=== PATIENT | male | born 1955 | race Caucasian/White ===

== ENCOUNTER 2017-05-15 20:17 | Inpatient (IN) | payer MEDICAID, OTHER ==
[~2017-05-15] VITALS: Ht 175.3 cm; Wt 107.0 kg
[~2017-05-15 20:17] MED LIST: ADVICAP; ALLO100 PO; FERR324T4 PO; HYDR50TA5 PO; HYZA100T4 PO; LOSA25; PROP20 PO; PROT40TA PO; blood pressure med
[2017-05-15 20:29] VITALS: BP 127/85; PULSE 70; RESP 20; TEMP 97.8
[2017-05-15 20:50] VITALS: BP 140/70; PULSE 70; RESP 16; O2SAT 98
[2017-05-15] MEDS ORDERED: ALLO100T PO (20:54)
[2017-05-15] MEDS ORDERED: LOSA100T3 PO (20:54)
[2017-05-15] MEDS ORDERED: PROT40TA PO (20:54)
[2017-05-15] MEDS ORDERED: PROP20TA3 PO (20:54)
[2017-05-15] MEDS ORDERED: FERR325T18 PO (20:54)
[2017-05-15] MEDS ORDERED: OCTREOTIDE INJ 500 MCG in SODIUM CHLORID 0.9% 500 ML INJ 500 ML IV SCH (21:05)
[2017-05-15] MEDS ORDERED: PANTOPRAZOLE INJ 80 MG in SODIUM CHLORIDE 0.9% INJ 100 ML IV SCH ×5 (21:05→21:30)
[2017-05-15] MEDS ORDERED: PANTOPRAZOLE INJ 80 MG in SODIUM CHLORIDE 0.9% INJ 35 ML IV ONE (21:05)
--- NOTE | 2017-05-15 21:13 | PD ---
HPI Chief Complaint: GI Complaint Time Seen by Provider: 20:47 Travel History International Travel<30 days: No Contact w/Intl Traveler<30days: No Traveled to known affect area: No History of Present Illness HPI 62yo M with PMH of esophageal varices here with c/o hematemesis that started half an hour ago. Said he vomited bright red blood with blood clots in it. Also with epigastric and left lower abdominal pain. Denies any fever, chest pain, sob, dysuria, hematuria, black stool or blood in stool. Pt was admitted 03/2013 for upper GI bleed and anemia and had endoscopy that showed esophageal varices, gastritis and duodenitis. Had transfusion of 5 units of PRBC. Pt said he has not had any problems since then so has not follow with any GI physician. Drinks alcohol occasionally. Pt said he vomited about 1000cc of bright red blood with clots that started 30 minutes prior to arrival. PFSH Past Medical History Arthritis: Yes Cancer: No Diminished Hearing: No Endocrine: No GERD: Yes Gout: Yes Genitourinary: Yes (Jiang's Esophagus) Hypertension: Yes Immune Disorder: No Musculoskeletal: Yes Neurologic: No Psychiatric: No Reproductive: No Respiratory: No Tetanus Vaccination: > 5 Years Influenza Vaccination: No Past Surgical History Oral Surgery: Yes (TONSILECTOMY) Tonsillectomy: Yes Other Surgery: Yes Social History Alcohol Use: Yes (BEERS WEEKLY. "a couple beers a week" ) Tobacco Use: No Substance Use: No Allergies-Medications (Allergen,Severity, Reaction): Coded Allergies: No Known Allergies (Verified Allergy, Unknown, 05/15/17) Reported Meds & Prescriptions Reported Meds & Active Scripts Active Reported Propranolol (Propranolol HCl) 20 Mg Tab 20 Mg PO Q12HR Protonix (Pantoprazole Sodium) 40 Mg Tab 40 Mg PO DAILY Losartan-Hydrochlorothiazide 100-12.5 Mg Tab 1 Tab PO DAILY Ferrous Sulfate 325 Mg (65 Mg Iron) Tablet 325 Mg PO BIDPC Allopurinol 100 Mg Tab 100 Mg PO DAILY Review of Systems Except as stated in HPI: all other systems reviewed are Neg Physical Exam Narrative GENERAL: 62yo M in mild distress. SKIN: Focused skin assessment warm/dry. HEAD: Atraumatic. Normocephalic. EYES: Pupils equal and round. No scleral icterus. No injection or drainage. ENT: No nasal bleeding or discharge. Mucous membranes pink and moist. NECK: Trachea midline. No JVD. CARDIOVASCULAR: Regular rate and rhythm. No murmur appreciated. RESPIRATORY: No accessory muscle use. Clear to auscultation. Breath sounds equal bilaterally. GASTROINTESTINAL: Abdomen soft, +TTP epigastric and LLQ. No rebound tenderness or guarding. MUSCULOSKELETAL: No obvious deformities. No clubbing. No cyanosis. No edema. NEUROLOGICAL: Awake and alert. No obvious cranial nerve deficits. Motor grossly within normal limits. Normal speech. PSYCHIATRIC: Appropriate mood and affect; insight and judgment normal. Data Data Last Documented VS Vital Signs Date Time Temp Pulse Resp B/P (MAP) Pulse Ox O2 Delivery O2 Flow Rate FiO2 05/15/17 22:10 98.7 75 18 125/75 (92) 98 Room Air Orders Orders Basic Metabolic Panel (Bmp) (05/15/17 21:05) Complete Blood Count With Diff (05/15/17 21:05) Prothrombin Time / Inr (Pt) (05/15/17 21:05) Act Partial Throm Time (Ptt) (05/15/17 21:05) Type And Screen (05/15/17 21:05) Ondansetron Inj (Zofran Inj) (05/15/17 21:15) Sodium Chlorid 0.9%... W/Octreotide Inj (05/15/17 21:05) Sodium Chloride 0.9... W/Pantoprazole In (05/15/17 21:05) Ct Abd/Pel W Iv Contrast(Rout) (05/15/17 ) Pantoprazole Inj (Protonix Inj) (05/15/17 21:30) Octreotide Inj (Sandostatin Inj) (05/15/17 21:30) Blood Product Administration (05/15/17 22:02) Ondansetron Inj (Zofran Inj) (05/15/17 22:30) Consult Gastroenterology (05/15/17 ) Ceftriaxone Inj (Rocephin Inj) (05/15/17 22:30) Admit Order (Ed Use Only) (05/15/17 22:24) Labs Laboratory Tests Test 05/15/17 21:10 White Blood Count 8.6 TH/MM3 Red Blood Count 3.88 MIL/MM3 Hemoglobin 12.1 GM/DL Hematocrit 36.2 % Mean Corpuscular Volume 93.4 FL Mean Corpuscular Hemoglobin 31.1 PG Mean Corpuscular Hemoglobin Concent 33.3 % Red Cell Distribution Width 14.2 % Platelet Count 167 TH/MM3 Mean Platelet Volume 7.6 FL Neutrophils (%) (Auto) 64.4 % Lymphocytes (%) (Auto) 21.9 % Monocytes (%) (Auto) 8.7 % Eosinophils (%) (Auto) 4.3 % Basophils (%) (Auto) 0.7 % Neutrophils # (Auto) 5.5 TH/MM3 Lymphocytes # (Auto) 1.9 TH/MM3 Monocytes # (Auto) 0.7 TH/MM3 Eosinophils # (Auto) 0.4 TH/MM3 Basophils # (Auto) 0.1 TH/MM3 CBC Comment DIFF FINAL Differential Comment Prothrombin Time 10.9 SEC Prothromb Time International Ratio 1.1 RATIO Activated Partial Thromboplast Time 24.7 SEC Blood Urea Nitrogen 11 MG/DL Creatinine 0.95 MG/DL Random Glucose 180 MG/DL Calcium Level 8.1 MG/DL Sodium Level 134 MEQ/L Potassium Level 3.9 MEQ/L Chloride Level 103 MEQ/L Carbon Dioxide Level 25.2 MEQ/L Anion Gap 6 MEQ/L Estimat Glomerular Filtration Rate 81 ML/MIN [facility] Medical Decision Making Medical Screen Exam Complete: Yes Emergency Medical Condition: Yes Differential Diagnosis Esophageal variceal bleed vs. peptic ulcer bleed vs. gastritis Narrative Course 62yo M with hematemesis that started 30 min prior to arrival. Labs reviewed, H/ H 12./36.2. Normal platelet. BMP unremarkable. Pt is currently hemodynamically stable. Pt place on octreotide and protonix drip. At 10:00pm, pt just vomited 300cc of bright red blood with blood clots. I discussed with Dr. Couch who is 1st pressman on web press for GI and she recommends transferring to [facility] where there are blood products and also rocephin for prophylaxis in esophageal bleed. Labs reviewed, no leukocytosis. H/H 12.1/36.2. Pt has just vomited 30 min ago so do not expect H/H to be that low yet. Pt has a tendency to decompensate very rapidly so will emergently transfer him to [facility]. Pt has 2 18 gauge IV in bilateral AC and a 20 gauge IV in right hand. Discussed with Dr. Fragoso and accepted to his service. CT a/p showed possible blood products in stomach. Pt emergently transferred to [facility] with stable vital signs. Critical Care Narrative Aggregate critical care time was 40 minutes. Time to perform other separately billable procedures was not included in the critical care time. My time did not include minutes spent treating any other patients simultaneously or on activities that did not directly contribute to the patient's treatment. The services I provided to this patient were to treat and/or prevent clinically significant deterioration that could result in: cardiovascular collapse or . I provided critical care services requiring my management, as noted below: Chart data review, documentation time, medication orders and management, vital sign assessments/reviewing monitor data, ordering and reviewing lab tests, ordering and interpreting/reviewing x-rays and diagnostic studies, care of the patient and discussion of the patient with the admitting physicians. Diagnosis Primary Impression: UGIB (upper gastrointestinal bleed) Admitting Information Admitting Physician Requests: Rohini Portillo DO May 15, 2017 21:13
[2017-05-15 21:15] VITALS: BP 145/75; PULSE 67; RESP 18; O2SAT 98
[2017-05-15] MEDS ORDERED: ONDANSETRON HCL 4 MG/2 ML VIAL IVP ONE (21:15)
[2017-05-15 21:22] LABS: AUTOMATED NEUTROPHIL # 5.5 TH/MM3 (1.8-7.7); BASOPHIL # 0.1 TH/MM3 (0-0.2); BASOPHIL % 0.7 % (0.0-2.0); EOSINOPHIL # 0.4 TH/MM3 (0-0.4); EOSINOPHIL % 4.3 % (0.0-4.0); HEMATOCRIT 36.2 % (39.0-51.0); HEMOGLOBIN 12.1 GM/DL (13.0-17.0); LYMPH % 21.9 % (9.0-44.0); LYMPHOCYTE # 1.9 TH/MM3 (1.0-4.8); MEAN CELL VOLUME 93.4 FL (80.0-100.0); MEAN CORPUSCULAR HEMOGLOBIN 31.1 PG (27.0-34.0); MEAN CORPUSCULAR HGB CONC 33.3 % (32.0-36.0); MEAN PLATELET VOLUME 7.6 FL (7.0-11.0); MONO % 8.7 % (0.0-8.0); MONOCYTE # 0.7 TH/MM3 (0-0.9); NEUT % 64.4 % (16.0-70.0); PLATELET COUNT 167 TH/MM3 (150-450); RED BLOOD COUNT 3.88 MIL/MM3 (4.50-5.90); RED CELL DISTRIBUTION WIDTH 14.2 % (11.6-17.2); WHITE BLOOD COUNT 8.6 TH/MM3 (4.0-11.0)
[2017-05-15 21:39] LABS: CALCIUM 8.1 MG/DL (8.5-10.1)
[2017-05-15 21:40] LABS: BICARBONATE 25.2 MEQ/L (21.0-32.0)
[2017-05-15 21:43] LABS: CREATININE 0.95 MG/DL (0.60-1.30); INTERNATIONAL NORMALIZED RATIO 1.1 RATIO; PROTHROMBIN TIME - PATIENT 10.9 SEC (9.8-11.6)
[2017-05-15] MEDS: OCTREOTIDE INJ 500 MCG in SODIUM CHLORID 0.9% 500 ML INJ 500 ML IV SCH (21:49)
[2017-05-15 22:10] VITALS: BP 125/75; PULSE 75; RESP 18; TEMP 98.7; O2SAT 98
[2017-05-15] MEDS ORDERED: ONDANSETRON HCL 4 MG/2 ML VIAL IV PUSH ONE (22:30)
[2017-05-15] MEDS ORDERED: cefTRIAXone INJ 1,000 MG in SODIUM CHLORIDE 0.9% INJ 100 ML IV ONE (22:30)
--- NOTE | 2017-05-15 22:51 | HHI.HP ---
[facility] Service Critical Care Medicine Primary Care Physician Trey Ruiz, DO Admission Diagnosis Upper GI bleed Diagnosis: Travel History International Travel<30 Days: No Contact w/Intl Traveler <30 Da: No Traveled to Known Affected Are: No History of Present Illness 62 year old very pleasant gentleman with past medical history of esophageal varices presents with complains of hematemesis that started half an hour prior to admission. He vomited bright red blood with blood clots in it. Also with epigastric and left lower abdominal pain. Denies any fever, chest pain, sob, dysuria, hematuria, black stool or blood in stool. Pt was admitted 03/2013 for upper GI bleed and anemia and had endoscopy that showed esophageal varices, gastritis and duodenitis. Had transfusion of 5 units of PRBC. Per patient he has not had any problems since then so has not follow with any GI physician. Drinks alcohol occasionally. Case was discussed with and ED attending with Dr. Couch, tower helper automotive service consultant who recommended a transfer to [facility] and ICU admission Review of Systems Constitutional: DENIES: Diaphoretic episodes, Fatigue, Fever, Weight gain, Weight loss, Chills, Dizziness, Change in appetite, Night Sweats Endocrine: DENIES: Heat/cold intolerance, Polydipsia, Polyuria, Polyphagia Eyes: DENIES: Blurred vision, Diplopia, Eye inflammation, Eye pain, Vision loss , Photosensitivity, Double Vision Ears, nose, mouth, throat: DENIES: Tinnitus, Hearing loss, Vertigo, Nasal discharge, Oral lesions, Throat pain, Hoarseness, Ear Pain, Running Nose, Epistaxis, Sinus Pain, Toothache, Odynophagia Respiratory: DENIES: Apneas, Cough, Snoring, Wheezing, Hemoptysis, Sputum production, Shortness of breath Cardiovascular: DENIES: Chest pain, Palpitations, Syncope, Dyspnea on Exertion , PND, Lower Extremity Edema, Orthopnea, Claudication Gastrointestinal: COMPLAINS OF: Nausea, Vomiting, DENIES: Abdominal pain, Black stools, Bloody stools, Constipation, Diarrhea, Difficulty Swallowing, Anorexia Genitourinary: DENIES: Sexual dysfunction, Urinary frequency, Urinary incontinence, Urgency, Hematuria, Dysuria, Nocturia, Penile Discharge, Testicular Pain, Testicular Swelling Musculoskeletal: DENIES: Joint pain, Muscle aches, Stiffness, Joint Swelling, Back pain, Neck pain Integumentary: DENIES: Abnormal pigmentation, Nail changes, Pruritus, Rash Hematologic/lymphatic: DENIES: Bruising, Lymphadenopathy Immunologic/allergic: DENIES: Eczema, Urticaria Neurologic: DENIES: Abnormal gait, Headache, Localized weakness, Paresthesias, Seizures, Speech Problems, Tremor, Poor Balance Psychiatric: DENIES: Anxiety, Confusion, Mood changes, Depression, Hallucinations, Agitation, Suicidal Ideation, Homicidal Ideation, Delusions Past Family Social History Allergies: Coded Allergies: No Known Allergies (Verified Allergy, Unknown, 05/15/17) Past Medical History Hypertension Osteoarthritis Gout Big toe pain - years ago GERD Esophageal varices status post upper EGD - Dr. Couch Past Surgical History Upper EGD for esophageal varices Reported Medications Reported Meds & Active Scripts Active Reported Propranolol (Propranolol HCl) 20 Mg Tab 20 Mg PO Q12HR Protonix (Pantoprazole Sodium) 40 Mg Tab 40 Mg PO DAILY Losartan-Hydrochlorothiazide 100-12.5 Mg Tab 1 Tab PO DAILY Ferrous Sulfate 325 Mg (65 Mg Iron) Tablet 325 Mg PO BIDPC Allopurinol 100 Mg Tab 100 Mg PO DAILY Active Ordered Medications Current Medications Medications (Trade) Dose Ordered Sig/Alcides Route PRN Reason Start Time Stop Time Status Last Admin Dose Admin Octreotide Acetate 500 mcg/ Sodium Chloride 500.5 ml @ 50 mls/hr Q10H IV 05/15/17 21:30 05/15/17 21:49 Sodium Chloride 1,000 ml @ 84 mls/hr [id number] IV 05/15/17 22:51 05/16/17 01:03 Sodium Chloride (NS Flush) 2 ml UNSCH PRN IV FLUSH FLUSH AFTER USING IV ACCESS 05/15/17 23:00 Sodium Chloride (NS Flush) 2 ml BID IV FLUSH 05/16/17 09:00 Acetaminophen (Tylenol) 650 mg Q6H PRN PO PAIN 1-5 AND/OR FEVER >101F 05/15/17 23:00 Morphine Sulfate (Morphine Inj) 2 mg Q2H PRN IV PUSH PAIN SCALE 6 TO 10 05/15/17 23:00 Pantoprazole Sodium (Protonix) 40 mg Q12H PO 05/15/17 09:00 Lorazepam (Ativan Inj) 1 mg Q1H PRN IV PUSH Agitation/Sedation 05/15/17 23:00 Temazepam (Restoril) 15 mg HS PRN PO INSOMNIA 05/15/17 23:00 Albuterol/ Ipratropium (Duoneb Neb) 1 ampule Q2HR NEB PRN INH WHEEZING 05/15/17 23:00 Miscellaneous Information 1 [id number] XX 05/15/17 23:00 05/16/17 00:15 Chlorhexidine Gluconate (Chlorhexidine 2% Cloth) 3 pack Taper DAILY@04 TOP 05/16/17 04:00 05/12/18 03:59 05/16/17 01:03 Chlorhexidine Gluconate (Chlorhexidine 2% Cloth) 3 pack UNSCH PRN TOP HYGIENIC CARE 05/15/17 23:00 Senna/Docusate Sodium (Radha-Colace) 1 tab BID PO 05/16/17 09:00 Magnesium Hydroxide (Milk Of Magnesia Liq) 30 ml Q12H PRN PO Mild constipation 05/15/17 23:00 Sennosides (Senokot) 17.2 mg Q12H PRN PO Moderate constipation 05/15/17 23:00 Bisacodyl (Dulcolax Supp) 10 mg DAILY PRN RECTAL SEVERE CONSITIPATION/ IF NPO 05/15/17 23:00 Lactulose (Lactulose Liq) 30 ml DAILY PRN PO SEVERE CONSITIPATION/ IF PO 05/15/17 23:00 Ceftriaxone Sodium 2000 mg/ Sodium Chloride 100 ml @ 200 mls/hr Q24H IV 05/15/17 23:00 05/15/17 23:37 Ferrous Sulfate (Ferrous Sulfate) 325 mg BIDPC PO 05/16/17 09:00 Pantoprazole Sodium 80 mg/ Sodium Chloride 100 ml @ 10 mls/hr Q10H IV 05/15/17 21:30 05/16/17 07:29 05/15/17 00:15 Pneumococcal Polyvalent Vaccine (Pneumovax-23 Inj) 25 mcg ONCE ONCE IM 05/16/17 09:00 05/16/17 09:01 Influenza Virus Vaccine (Flu (Quadrivalent) Vaccine Inj) 0.5 ml ONCE ONCE IM 05/16/17 09:00 05/16/17 09:01 Ondansetron HCl (Zofran Inj) 4 mg Q6HR PRN IV PUSH nausea 05/16/17 01:15 Family History No family history significant of malignancy Social History non smoker occasional drink 2x week at the most no history of recreational drug use Physical Exam Vital Signs Vital Signs Date Time Temp Pulse Resp B/P (MAP) Pulse Ox O2 Delivery O2 Flow Rate FiO2 05/15/17 20:50 70 16 140/70 (93) 98 Room Air 05/15/17 20:29 97.8 70 20 127/85 (99) Physical Exam GENERAL: Well-nourished, well-developed patient. SKIN: Warm and dry. HEAD: Normocephalic. EYES: No scleral icterus. No injection or drainage. NECK: Supple, trachea midline. No JVD or lymphadenopathy. CARDIOVASCULAR: Regular rate and rhythm without murmurs, gallops, or rubs. RESPIRATORY: Breath sounds equal bilaterally. No accessory muscle use. GASTROINTESTINAL: Abdomen soft, non-tender, nondistended. MUSCULOSKELETAL: No cyanosis, or edema. BACK: Nontender without obvious deformity. NEURO EXAM: GCS: 15 Mental Status: The patient is alert and oriented to person, place, and time with normal speech. Laboratory Laboratory Tests Test 05/15/17 21:10 White Blood Count 8.6 Red Blood Count 3.88 Hemoglobin 12.1 Hematocrit 36.2 Mean Corpuscular Volume 93.4 Mean Corpuscular Hemoglobin 31.1 Mean Corpuscular Hemoglobin Concent 33.3 Red Cell Distribution Width 14.2 Platelet Count 167 Mean Platelet Volume 7.6 Neutrophils (%) (Auto) 64.4 Lymphocytes (%) (Auto) 21.9 Monocytes (%) (Auto) 8.7 Eosinophils (%) (Auto) 4.3 Basophils (%) (Auto) 0.7 Neutrophils # (Auto) 5.5 Lymphocytes # (Auto) 1.9 Monocytes # (Auto) 0.7 Eosinophils # (Auto) 0.4 Basophils # (Auto) 0.1 CBC Comment DIFF FINAL Differential Comment Prothrombin Time 10.9 Prothromb Time International Ratio 1.1 Activated Partial Thromboplast Time 24.7 Blood Urea Nitrogen 11 Creatinine 0.95 Random Glucose 180 Calcium Level 8.1 Sodium Level 134 Potassium Level 3.9 Chloride Level 103 Carbon Dioxide Level 25.2 Anion Gap 6 Estimat Glomerular Filtration Rate 81 Result Diagram: 05/15/17210905/15/172109 Septic Shock Reassessment Septic shock perfusion: reassessment completed Caprini VTE Risk Assessment Caprini VTE Risk Assessment: Mod/High Risk (score >= 2) VTE Pharm Contraindication: Hemorrhage Caprini Risk Assessment Model Point Value = 1 Point Value = 2 Point Value = 3 Point Value = 5 Age 41-60 Minor surgery BMI > 25 kg/m2 Swollen legs Varicose veins or History of unexplained or recurrent spontaneous Oral contraceptives or hormone replacement Sepsis (< 1 month) Serious lung disease, including pneumonia (< 1 month) Abnormal pulmonary function Acute myocardial infarction Congestive heart failure (< 1 month) History of inflammatory bowel disease Medical patient at bed rest Age 61-74 Arthroscopic surgery Major open surgery (> 45 min) Laparoscopic surgery (> 45 min) Malignancy Confined to bed (> 72 hours) Immobilizing plaster cast Central venous access Age >= 75 History of VTE Family history of VTE Factor V Leiden Prothrombin [id number] Lupus anticoagulant Anticardiolipin antibodies Elevated serum homocysteine Heparin-induced thrombocytopenia Other congenital or acquired thrombophilia Stroke (< 1 month) Elective arthroplasty Hip, pelvis, or leg fracture Acute spinal cord injury (< 1 month) Prophylaxis Regimen Total Risk Factor Score Risk Level Prophylaxis Regimen 0-1 Low Early ambulation 2 Moderate Order ONE of the following: *Sequential Compression Device (SCD) *Heparin 5000 units SQ BID 3-4 Higher Order ONE of the following medications: *Heparin 5000 units SQ TID *Enoxaparin/Lovenox 40 mg SQ daily (WT < 150 kg, CrCl > 30 mL/min) *Enoxaparin/Lovenox 30 mg SQ daily (WT < 150 kg, CrCl > 10-29 mL/min) *Enoxaparin/Lovenox 30 mg SQ BID (WT < 150 kg, CrCl > 30 mL/min) AND/OR *Sequential Compression Device (SCD) 5 or more Highest Order ONE of the following medications: *Heparin 5000 units SQ TID (Preferred with Epidurals) *Enoxaparin/Lovenox 40 mg SQ daily (WT < 150 kg, CrCl > 30 mL/min) *Enoxaparin/Lovenox 30 mg SQ daily (WT < 150 kg, CrCl > 10-29 mL/min) *Enoxaparin/Lovenox 30 mg SQ BID (WT < 150 kg, CrCl > 30 mL/min) AND *Sequential Compression Device (SCD) Assessment and Plan Assessment and Plan Hematemesis - History of underlying esophageal varices - ICU admission - Nothing by mouth - Gastroenterology consultation - Series of H&H - Pantoprazole drip - Octreotide drip - Rocephin for SBP prophylaxis History of hypertension - Hold all antihypertensive meds due to active GI bleed Anemia - Blood loss - Series of H&H - Transfuse for hemoglobin less than 7 or if hemodynamically unstable DVT GI prophylaxis - Teds SCDs - No pharmacological DVT prophylaxis due to acute GI bleed - Protonix drip Critical Care: The total critical care time was 35 minutes. Time to perform other separately billable procedures was not included in the critical care time. Raymundo Fragoso MD May 15, 2017 22:50
[2017-05-15] MEDS ORDERED: BISACODYL 10 MG SUPP RECTAL PRN (23:00)
[2017-05-15] MEDS ORDERED: TEMAZEPAM 15 MG CAP PO PRN (23:00)
[2017-05-15] MEDS ORDERED: MAGNESIUM HYDROXIDE SUSP 30 ML CUP PO PRN (23:00)
[2017-05-15] MEDS ORDERED: SODIUM CHLORIDE 0.9% FLUSH 10 ML FLUSH IV FLUSH PRN (23:00)
[2017-05-15] MEDS ORDERED: CHLORHEXIDINE GLUCONATE 2 % 1 PACK (2 CLOTHS) TOP PRN (23:00)
[2017-05-15] MEDS ORDERED: ACETAMINOPHEN 325 MG TAB PO PRN (23:00)
[2017-05-15] MEDS ORDERED: MISCELLANEOUS NURSING INFORMATION XX SCH (23:00)
[2017-05-15] MEDS ORDERED: LACTULOSE SYRUP 20 GM/30 ML CUP PO PRN (23:00)
[2017-05-15] MEDS ORDERED: MORPHINE SULFATE 2 MG/ML INJ IV PUSH PRN (23:00)
[2017-05-15] MEDS ORDERED: SENNOSIDES 8.6 MG TAB PO PRN (23:00)
[2017-05-15] MEDS ORDERED: LORazepam 2 MG/ML VIAL IV PUSH PRN (23:00)
[2017-05-15 23:15] VITALS: BP 155/80; PULSE 68; RESP 16; O2SAT 98
[2017-05-15] MEDS ORDERED: IOHEXOL 350 MG/ML 10 ML VIAL (for RAD DIAG) IVCONTRAST ONE (23:31)
[2017-05-15] MEDS: cefTRIAXone INJ 2,000 MG in SODIUM CHLORIDE 0.9% INJ 100 ML IV SCH (23:37)
--- NOTE | 2017-05-15 23:43 | RADRPT ---
EXAM DATE/TIME: 05/15/2017 23:10 [place] COMPARISON: CT ABDOMEN & PELVIS W CONTRAST, March 16, 2013, 14:43. INDICATIONS : Epigastric and left lower quadrant pain. Hematemesis. IV CONTRAST: 100 cc Omnipaque 350 (iohexol) IV ORAL CONTRAST: No oral contrast ingested. RADIATION DOSE: 20.71 CTDIvol (mGy) MEDICAL HISTORY : Hypertension. Gastroesophageal reflux disease. SURGICAL HISTORY : None. ENCOUNTER: Initial ACUITY: 1 day PAIN SCALE: 10/10 LOCATION: Left lower quadrant Epigastric. TECHNIQUE: Volumetric scanning of the abdomen and pelvis was performed. Using automated exposure control and ad justment of the mA and/or kV according to patient size, radiation dose was kept as low as reasonably achievable to obtain optimal diagnostic quality images. DICOM format image data is available electro nically for review and comparison. FINDINGS: LOWER LUNGS: The visualized lower lungs are clear. LIVER: The liver demonstrates morphology characteristic of cirrhosis with caudate lobe hypertrophy, and cent ral atrophy, and mildly nodular contour. No focal liver lesion is seen. Portal vein is patent. There is thrombus versus mixing artifact in the central superior mesenteric vein. There is no dilation of the biliary tree. No calcified gallstones. SPLEEN: Enlarged measuring 19 cm in length. PANCREAS: Within normal limits. KIDNEYS: Normal in size and shape. There is no mass, stone or hydronephrosis. ADRENAL GLANDS: Within normal limits. VASCULAR: There is no aortic aneurysm. There is mild atherosclerotic disease. Collateral blood vessels are pres ent in the abdomen. BOWEL/MESENTERY: Stomach is filled with heterogeneous high density material potentially representing blood products. T he small bowel and colon demonstrate no acute abnormality. There is no free intraperitoneal air. The re is no significant ascites. ABDOMINAL WALL: Within normal limits. RETROPERITONEUM: There is no lymphadenopathy. BLADDER: No wall thickening or mass. REPRODUCTIVE: Prostate gland is enlarged. INGUINAL: There is no lymphadenopathy or hernia. MUSCULOSKELETAL: There degenerative changes throughout the lumbar spine with prominent endplate changes. CONCLUSION: 1. Heterogeneous high density material filling the stomach some of which could represent blood produc ts. 2. There are features characteristic of cirrhosis and findings indicative of portal hypertension incl uding collateral blood vessels and splenomegaly. The suspected blood products in the stomach could be related to portal hypertension. Gen Chopra MD on May 15, 2017 at 23:35 Board Certified Radiologist. This report was verified electronically.
[2017-05-16] VITALS (22 sets, daily range): BP systolic 109–158; BP diastolic 58–80; PULSE 46–64; RESP 5–17; TEMP 97.2–99; O2SAT 95–100
[2017-05-16] MEDS: CHLORHEXIDINE GLUCONATE 2 % 1 PACK (2 CLOTHS) TOP SCH (01:03)
[2017-05-16] MEDS: SODIUM CHLOR 0.9% 1000 ML INJ 1,000 ML IV SCH ×2 (01:03→10:46)
[2017-05-16] MEDS: PANTOPRAZOLE SOD 40 MG DELAYED RELEASE TAB PO SCH ×4 (01:04→19:18)
[2017-05-16 03:06] LABS: HEMATOCRIT 33.3 % (39.0-51.0); HEMOGLOBIN 11.7 GM/DL (13.0-17.0)
[2017-05-16 04:29] LABS: AUTOMATED NEUTROPHIL # 5.5 TH/MM3 (1.8-7.7); BASOPHIL % 0.6 % (0.0-2.0); EOSINOPHIL # 0.1 TH/MM3 (0-0.4); EOSINOPHIL % 1.9 % (0.0-4.0); HEMATOCRIT 34.5 % (39.0-51.0); MEAN CELL VOLUME 93.1 FL (80.0-100.0); MEAN CORPUSCULAR HEMOGLOBIN 32.4 PG (27.0-34.0); MEAN CORPUSCULAR HGB CONC 34.8 % (32.0-36.0); MEAN PLATELET VOLUME 7.2 FL (7.0-11.0); MONO % 7.6 % (0.0-8.0); MONOCYTE # 0.6 TH/MM3 (0-0.9); NEUT % 75.9 % (16.0-70.0); PLATELET COUNT 106 TH/MM3 (150-450); RED CELL DISTRIBUTION WIDTH 14.9 % (11.6-17.2); WHITE BLOOD COUNT 7.3 TH/MM3 (4.0-11.0)
[2017-05-16 04:41] LABS: INTERNATIONAL NORMALIZED RATIO 1.1 RATIO; PROTHROMBIN TIME - PATIENT 10.8 SEC (9.8-11.6)
[2017-05-16 04:47] LABS: ALBUMIN 3.4 GM/DL (3.4-5.0); ALT (GPT) 21 U/L (12-78); AST (GOT) 26 U/L (15-37); BICARBONATE 24.5 MEQ/L (21.0-32.0); BLOOD UREA NITROGEN 10 MG/DL (7-18); CALCIUM 8.1 MG/DL (8.5-10.1); CHLORIDE 105 MEQ/L (98-107); CREATININE 0.95 MG/DL (0.60-1.30); GLOMERULAR FILTRATION RATE 81 ML/MIN (>89); GLUCOSE,RANDOM 152 MG/DL (74-106); MAGNESIUM 2.2 MG/DL (1.5-2.5); PHOSPHORUS 2.8 MG/DL (2.5-4.9); SODIUM (NA) 138 MEQ/L (136-145)
[2017-05-16 04:49] LABS: ALKALINE PHOSPHATASE 77 U/L (45-117); TOTAL BILIRUBIN ADULT 0.6 MG/DL (0.2-1.0); TOTAL PROTEIN 6.9 GM/DL (6.4-8.2)
--- NOTE | 2017-05-16 07:12 | HHI.CCPN ---
Subjective Remarks/Hospital Course 62yo M with PMH of esophageal varices here with c/o hematemesis that started half an hour ago. Said he vomited bright red blood with blood clots in it. Also with epigastric and left lower abdominal pain. Denies any fever, chest pain, sob, dysuria, hematuria, black stool or blood in stool. Pt was admitted 03/2013 for upper GI bleed and anemia and had endoscopy that showed esophageal varices, gastritis and duodenitis. Had transfusion of 5 units of PRBC. Pt said he has not had any problems since then so has not follow with any GI physician. Drinks alcohol occasionally. Pt said he vomited about 1000cc of bright red blood with clots that started 30 minutes prior to arrival. Subjective: 05/16: Afebrile. Hemoglobin stable overnight. No further hematemesis. The patient continues on Octreotide and Protonix infusions. Plan for EGD this a.m. with banding. Objective Vital Signs Date Time Temp Pulse Resp B/P (MAP) Pulse Ox O2 Delivery O2 Flow Rate FiO2 05/16/17 06:00 60 13 139/80 (99) 98 05/16/17 04:00 98.2 05/15/17 23:15 Room Air Intake and Output 05/16/17 05/16/17 05/17/17 08:00 16:00 00:00 Intake Total 1066 ml Output Total 1750 ml Balance -684 ml Result Diagram: 05/16/17 0351 05/16/17 0351 Imaging Last Impressions Abdomen/Pelvis CT 05/15/17 0000 Signed Impressions: Service Date/Time: Monday, May 15, 2017 23:10 - CONCLUSION: 1. Heterogeneous high density material filling the stomach some of which could represent blood products. 2. There are features characteristic of cirrhosis and findings indicative of portal hypertension including collateral blood vessels and splenomegaly. The suspected blood products in the stomach could be related to portal hypertension. Gen Chopra MD Objective Remarks GENERAL: Well-nourished, well-developed male in no acute distress SKIN: Warm and dry. HEAD: Normocephalic. EYES: No scleral icterus. No injection or drainage. NECK: Supple, trachea midline. No JVD or lymphadenopathy. CARDIOVASCULAR: Regular rate and rhythm without murmurs, gallops, or rubs. RESPIRATORY: Breath sounds equal bilaterally. No accessory muscle use. GASTROINTESTINAL: Abdomen soft, non-tender, nondistended. Bowel sounds hypoactive MUSCULOSKELETAL: No cyanosis, or edema. BACK: Nontender without obvious deformity. NEURO EXAM: GCS: 15 Mental Status: The patient is alert and oriented to person, place, and time with normal speech. Motor strength 5/5 bilateral upper and lower extremities Urinary Catheter: No Vascular Central Line Catheter: No A/P Assessment and Plan Plan by systems: Neurologic: Abdominal pain Tylenol 650 mg every 6 hours when necessary for pain Respiratory: Maintain O2 sat greater than 92%, patient currently on room air O2 saturation 97 % Cardiovascular: Telemetry normal sinus rhythm Maintain MAP greater than 65 mmHg Renal: No Rae indicated at this time -- Strict I/Os FEN/GI: Esophageal varices UGI Hematemesis Nausea Maintain nothing by mouth status Continue normal saline at 84 cc/hour Follow-up GI recommendations, Dr. Couch Scheduled EGD this a.m. with esophageal banding Octreotide and Protonix infusions Ondansetron for nausea Heme/ID: Monitor CBC Hgb stable 12 Rocephin for SBP prophylaxis Endocrine: Glucose monitoring per ICU protocol -- SSI Prophylaxis: GI Prophylaxis Protonix infusion DVT Prophylaxis -- SCDs No pharmacological agents indicated at this time, in the setting of UGI Lines: Peripheral IVs 2. Central line if indicated Dispo: Level III Discussed with SUPERVISOR SOLDERING at bedside Physician Lyla Medellin MD May 16, 2017 07:12
[2017-05-16] MEDS: OCTREOTIDE INJ 500 MCG in SODIUM CHLORID 0.9% 500 ML INJ 500 ML IV SCH ×2 (07:47→18:16)
[2017-05-16] MEDS: SODIUM CHLORIDE 0.9% FLUSH 10 ML FLUSH IV FLUSH SCH ×2 (09:00→19:17)
[2017-05-16] MEDS: DOCUSATE SODIUM 50 MG/SENNA 8.6 MG TAB PO SCH ×3 (09:00→19:17)
[2017-05-16] MEDS ORDERED: PNEUMOCOCCAL POLYVALENT INJ 25 MCG/0.5 ML SYR IM ONE (09:00)
[2017-05-16] MEDS ORDERED: INFLUENZA VIRUS VACCINE (QUADRIVALENT) 0.5 ML SYR IM ONE (09:00)
[2017-05-16] MEDS: FERROUS SULFATE 325 MG (65 MG ELEMENTAL IRON) TAB PO SCH ×3 (09:00→18:00)
[2017-05-16] MEDS ORDERED: PROPOFOL 1000 MG/100 ML INJ 100 ML ONE (09:39)
[2017-05-16] MEDS ORDERED: PHENYLEPHRINE HCL 10 MG/ML VIAL ONE (09:43)
[2017-05-16] MEDS ORDERED: MIDAZOLAM HCL 2 MG/2 ML VIAL ONE (09:46)
--- NOTE | 2017-05-16 10:02 | GIPROC ---
[facility] [address] [facility]. [facility], [address] EGD PROCEDURE REPORT EXAM DATE: 05/16/2017 PATIENT NAME: Mansoor Deluca MR #: [id number] BIRTHDATE: 1955 ATTENDING: Yamileth Couch MD ORDER #: [id number] GEAR INSPECTOR: Gold Rubin and Claudette Shook STATUS: inpatient INDICATIONS: The patient is a 62 yr old male here for an EGD due to gi bleeding cirrhosis PROCEDURE PERFORMED: EGD w/ band ligation of varices MEDICATIONS: None and Per Anesthesia. TOPICAL ANESTHETIC: none CONSENT: The patient understands the risks and benefits of the procedure and understands that these risks include, but are not limited to: sedation, allergic reaction, infection, perforation and/or bleeding. Alternative means of evaluation and treatment include, among others: physical exam, x-rays, and/or surgical intervention. The patient elects to proceed with this endoscopic procedure. medical equipment was checked for proper function. Hand hygiene and appropriate measures for infection prevention was taken. After the risks, benefits and alternatives of the procedure were thoroughly explained, Informed consent was verified, confirmed and timeout was successfully executed by the treatment team. The patient was anesthetized with topical anesthesia and the Pentax EG-[id number] endoscope was introduced through the mouth and advanced to the second portion of the duodenum. Retroflexed views revealed old blood The gastroscope was then slowly withdrawn and removed. Esophageal varices grade 3-3 columns-s/p banding-3 difficult intubation to mass right side of oropharynx blood in stomach -some old, some fresh-agressive washing done no active bleeding retained food in stomach. ADVERSE EVENTS: There were no complications. IMPRESSIONS: 1. Esophageal varices grade 3-3 columns-s/p banding-3 difficult intubation to mass right side of oropharynx blood in stomach -some old, some fresh-agressive washing done no active bleeding retained food in stomach 2. Retroflexed views revealed old blood RECOMMENDATIONS: Npo except medication continue Protonix continu Octreotide monitor hb/ht closely transfuse prn ent consult ct neck liver work-up remain intubated for 12-24 hrs if no active bleed ok to extubate PATIENT CONDITION: stable DISPOSITION: Inpatient REPEAT EXAM: Return 2 days EGD Yamileth Couch MD eSigned: Yamileth Couch MD 05/16/2017 10:01 AM cc: PATIENT NAME: Mansoor Deluca MR#: [id number]
[2017-05-16] MEDS ORDERED: DO NOT ADM ANY ANTICOAGULANT DRUGS PRN (10:30)
[2017-05-16] MEDS ORDERED: TERBUTALINE INJ 1 MG/ML AMP SQ PRN (10:45)
[2017-05-16] MEDS ORDERED: PHENYLEPHRINE 40 MG in D5W 500 ML IV PRN (10:45)
--- NOTE | 2017-05-16 10:45 | RADRPT ---
EXAM DATE/TIME: 05/16/2017 10:15 [facility] COMPARISON: No previous studies available for comparison. INDICATIONS : ET Tube placement. MEDICAL HISTORY : Hypertension. Gastroesophageal reflux disease SURGICAL HISTORY : None. ENCOUNTER: Subsequent ACUITY: 3 days PAIN SCORE: 0/10 LOCATION: Bilateral chest FINDINGS: ETT is at the level of the clavicles. Mild airspace disease in the left lower lung zone. Cardiomedias tinal contours are within normal limits. Bony thorax is intact. CONCLUSION: 1. ETT in good position. 2. Mild left lower lung zone airspace disease which may reflect atelectasis. Rios Samuel MD on May 16, 2017 at 10:42 Board Certified Radiologist. This report was verified electronically.
[2017-05-16] MEDS ORDERED: RASS Change Order XX ONE ×2 (11:00→14:45)
[2017-05-16] MEDS ORDERED: PROPOFOL 1000 MG/100 ML IV PRN (11:00)
[2017-05-16] MEDS ORDERED: ePHEDrine/NS 25 MG/5 ML SYRINGE IV ONE (12:00)
[2017-05-16] MEDS ORDERED: PHENYLEPH/NS 1000 MCG/10 ML SYR IV ONE (12:00)
[2017-05-16] MEDS ORDERED: PROPOFOL 200 MG/20 ML AMP IV ONE (12:00)
[2017-05-16] MEDS ORDERED: LIDOCAINE HCL 1% PF 5 ML SYRINGE OTHER ONE (12:00)
[2017-05-16] MEDS ORDERED: SUCCINYLCHOLINE CHLORIDE 100 MG/5 ML SYRINGE IV PUSH ONE (12:00)
[2017-05-16] MEDS ORDERED: fentaNYL DRIP 250 ML IV PRN (12:30)
[2017-05-16] MEDS: DEXAMETHASONE SOD PHOS 4 MG/ML VIAL IV PUSH SCH ×2 (13:12→22:25)
[2017-05-16] MEDS ORDERED: PROPOFOL 500 MG/50 ML INJ 50 ML ONE ×2 (13:23→14:31)
--- NOTE | 2017-05-16 14:08 | PD.CONS ---
HPI History of Present Illness This is a 62 year old M with known medical history of esophageal varices and upper GI bleed in 2012 at which time an EGD was done which revealed gastritis, duodenitis, and esophageal varices. At time of my exam pt remains intubated S/ P EGD today per Dr. Couch's recommendations so history is obtained through chart review. Per ER notes patient presented with complaints of hematemesis that began thirty minutes prior to arrival, pt noticed blood clots mixed in. Associated complaints of epigastric and LLQ abdominal pain. CT abdomen and pelvis W IV contrast (05/15) noted --> Heterogeneous high density material filling the stomach some of which could represent blood products. There are features characteristic of cirrhosis and finding indicative of portal hypertension including collateral blood vessels and splenomegaly. The suspected blood products in the stomach could be related to portal hypertension. Pt now S/P EGD today which revealed esophageal varices grade 3-3 columns s/p banding, difficult intubation due to mass in right side of oropharynx- 3 blood in stomach- some old, some fresh-aggressive washing done, no active bleeding, retained food in stomach. Per ER note pt reports occasional ETOH. LFTs currently WNL. H/H currently stable 12.0/34.5, has not received PRBCs. (Jaimie Jones) PFSH Past Medical History HTN Osteoarthritis Gout GERD Esophageal varices Past Surgical History EGD (Jaimie Jones) Coded Allergies: No Known Allergies (Verified Allergy, Unknown, 05/15/17) Social History ETOH- occasional (Jaimie Jones) Review of Systems unable to obtain, pt sedated and mechanically ventilated (Jaimie Jones) GI Exam Vitals I&O Vital Signs Date Time Temp Pulse Resp B/P (MAP) Pulse Ox O2 Delivery O2 Flow Rate FiO2 05/16/17 12:25 98 35 05/16/17 12:08 100 35 05/16/17 12:00 40 05/16/17 10:15 57 13 76/41 (53) 99 Mechanical Ventilator 40 05/16/17 10:00 58 13 114/58 (76) 99 Mechanical Ventilator 40 05/16/17 09:45 58 12 89/50 (63) 96 Mechanical Ventilator 40 05/16/17 09:45 98 40 2/6/18 09:40 98.4 57 12 85/42 (56) 97 Mechanical Ventilator 40 05/16/17 08:00 99.0 57 16 125/77 (93) 96 05/16/17 06:00 60 13 139/80 (99) 98 05/16/17 05:00 64 15 137/77 (97) 99 05/16/17 04:00 98.2 56 15 145/78 (100) 97 05/16/17 03:00 61 17 142/73 (96) 98 05/16/17 02:00 61 16 117/78 (91) 95 05/16/17 01:03 97.2 69 16 158/63 (94) 97 05/16/17 01:00 61 14 151/79 (103) 98 05/16/17 00:39 97.6 59 11 145/70 (95) 97 05/16/17 00:30 60 05/15/17 23:15 68 16 155/80 (105) 98 Room Air 05/15/17 22:10 98.7 75 18 125/75 (92) 98 Room Air 05/15/17 21:15 67 18 145/75 (98) 98 Room Air 05/15/17 20:50 70 16 140/70 (93) 98 Room Air 05/15/17 20:29 97.8 70 20 127/85 (99) I/O 05/15/17 05/15/17 05/15/17 05/16/17 05/16/17 05/16/17 07:00 15:00 23:00 07:00 15:00 23:00 Intake Total 35 ml 1066 ml 300 ml Output Total 300 ml 1750 ml Balance -265 ml -684 ml 300 ml Intake Oral 0 ml IV Total 35 ml 1066 ml Other 300 ml Output Urine Total 1750 ml Emesis 300 ml # Voids 4 # Bowel Movements 0 Imaging Last Impressions Chest X-Ray 05/16/17 0000 Signed Impressions: Service Date/Time: Tuesday, May 16, 2017 10:15 - CONCLUSION: 1. ETT in good position. 2. Mild left lower lung zone airspace disease which may reflect atelectasis. Rios Samuel MD Abdomen/Pelvis CT 05/15/17 0000 Signed Impressions: Service Date/Time: Monday, May 15, 2017 23:10 - CONCLUSION: 1. Heterogeneous high density material filling the stomach some of which could represent blood products. 2. There are features characteristic of cirrhosis and findings indicative of portal hypertension including collateral blood vessels and splenomegaly. The suspected blood products in the stomach could be related to portal hypertension. Gen Chopra MD Laboratory Test 05/15/17 21:10 05/16/17 00:15 05/16/17 02:43 05/16/17 03:51 White Blood Count 8.6 TH/MM3 7.3 TH/MM3 Red Blood Count 3.88 MIL/MM3 3.70 MIL/MM3 Hemoglobin 12.1 GM/DL 11.7 GM/DL 12.0 GM/DL Hematocrit 36.2 % 33.3 % 34.5 % Mean Corpuscular Volume 93.4 FL 93.1 FL Mean Corpuscular Hemoglobin 31.1 PG 32.4 PG Mean Corpuscular Hemoglobin Concent 33.3 % 34.8 % Red Cell Distribution Width 14.2 % 14.9 % Platelet Count 167 TH/MM3 106 TH/MM3 Mean Platelet Volume 7.6 FL 7.2 FL Neutrophils (%) (Auto) 64.4 % 75.9 % Lymphocytes (%) (Auto) 21.9 % 14.0 % Monocytes (%) (Auto) 8.7 % 7.6 % Eosinophils (%) (Auto) 4.3 % 1.9 % Basophils (%) (Auto) 0.7 % 0.6 % Neutrophils # (Auto) 5.5 TH/MM3 5.5 TH/MM3 Lymphocytes # (Auto) 1.9 TH/MM3 1.0 TH/MM3 Monocytes # (Auto) 0.7 TH/MM3 0.6 TH/MM3 Eosinophils # (Auto) 0.4 TH/MM3 0.1 TH/MM3 Basophils # (Auto) 0.1 TH/MM3 0.0 TH/MM3 CBC Comment DIFF FINAL DIFF FINAL Differential Comment Prothrombin Time 10.9 SEC 10.8 SEC Prothromb Time International Ratio 1.1 RATIO 1.1 RATIO Activated Partial Thromboplast Time 24.7 SEC 20.3 SEC Blood Urea Nitrogen 11 MG/DL 10 MG/DL Creatinine 0.95 MG/DL 0.95 MG/DL Random Glucose 180 MG/DL 152 MG/DL Calcium Level 8.1 MG/DL 8.1 MG/DL Sodium Level 134 MEQ/L 138 MEQ/L Potassium Level 3.9 MEQ/L 4.3 MEQ/L Chloride Level 103 MEQ/L 105 MEQ/L Carbon Dioxide Level 25.2 MEQ/L 24.5 MEQ/L Anion Gap 6 MEQ/L 9 MEQ/L Estimat Glomerular Filtration Rate 81 ML/MIN 81 ML/MIN Nasal Screen MRSA (PCR) MRSA NOT DETECTED Total Protein 6.9 GM/DL Albumin 3.4 GM/DL Phosphorus Level 2.8 MG/DL Magnesium Level 2.2 MG/DL Alkaline Phosphatase 77 U/L Aspartate Amino Transf (AST/SGOT) 26 U/L Alanine Aminotransferase (ALT/SGPT) 21 U/L Total Bilirubin 0.6 MG/DL Lactic Acid Level 2.3 mmol/L Test 05/16/17 11:20 Blood Gas Puncture Site RT RADIAL Blood Gas Patient Temperature 98.6 Blood Gas HCO3 23 mmol/L Blood Gas Base Excess -1.2 mmol/L Blood Gas Oxygen Saturation 96 % Arterial Blood pH 7.38 Arterial Blood Partial Pressure CO2 40 mmHg Arterial Blood Partial Pressure O2 117 mmHg Arterial Blood Oxygen Content 14.6 Vol % Arterial Blood Carboxyhemoglobin 1.2 % Arterial Blood Methemoglobin 1.3 % Blood Gas Hemoglobin 10.7 G/DL Oxygen Delivery Device VENTILATOR Blood Gas Ventilator Setting A/C 600/10/5PEEP Blood Gas Inspired Oxygen 35 % Physical Examination HEENT: Normocephalic; atraumatic; no jaundice CHEST: Mechanically ventilated via ETT CARDIAC: Sinus bradycardia on monitor ABDOMEN: Distended, soft, bowel sounds active SKIN: Normal; no rash; no jaundice. SEO EXECUTIVE: Sedated, unarousable (Jaimie Jones FAMILY AND CONSUMER SCIENCE PROFESSOR) Assessment and Plan Plan Assessment: - Hematemesis- started last night 30 mins prior to arrival to ED. History of upper GIB in 2012- EGD revealing esophageal varices at the time. Pt now S/P EGD today which revealed esophageal varices s/p banding x 3, mass to right side of oropharynx, blood in stomach some old, some fresh, no active bleeding. Retained food in stomach. - Cirrhosis with portal HTN- CT abdomen and pelvis W IV contrast noted (05/15) -- > Heterogeneous high density material filling the stomach some of which could represent blood products. There are features characteristic of cirrhosis and finding indicative of portal hypertension including collateral blood vessels and splenomegaly. The suspected blood products in the stomach could be related to portal hypertension. Pt reports occasional ETOH use. LFTs currently WNL. Albumin WNL, no coagulopathy. - Mass to right side of oropharynx- found during EGD Plan: Liver workup Continue Octreotide gtt Continue Protonix gtt ENT consult to evaluate oropharynx mass CT soft tissue neck W contrast Keep pt intubated for 12-24 hours if no further concern for bleeding can extubate Monitor H/H closely Further recommendations to follow based on results of above Pt has been seen and examined by myself and Dr. Couch and this note is written on her behalf (Jaimie Jones) Jaimie Jones May 16, 2017 14:08 Yamileth Couch MD May 16, 2017 22:57
[2017-05-16] MEDS: PROPOFOL 1000 MG/100 ML IV PRN ×2 (16:38→20:51)
[2017-05-16 18:28] LABS: % SATURATION IRON PROFILE 25.1 % (20-50); IRON (FE) 74 MCG/DL (65-175); TOTAL IRON BINDING CAPACITY 295 MCG/DL (250-450)
[2017-05-16 18:31] LABS: FERRITIN 116 NG/ML (26-388)
[2017-05-16] MEDS: CHLORHEXIDINE 0.12% (ORAL KIT) 15 ML CUP MT SCH (19:17)
[2017-05-16] MEDS: cefTRIAXone INJ 2,000 MG in SODIUM CHLORIDE 0.9% INJ 100 ML IV SCH (22:25)
[2017-05-16] MEDS ORDERED: IOHEXOL 350 MG/ML 10 ML VIAL (for RAD DIAG) IVCONTRAST ONE (23:51)
[2017-05-17] VITALS (24 sets, daily range): BP systolic 122–147; BP diastolic 60–86; PULSE 61–109; RESP 11–22; TEMP 97.6–99.7; O2SAT 89–97
--- NOTE | 2017-05-17 00:02 | RADRPT ---
EXAM DATE/TIME: 05/16/2017 23:43 [facility] COMPARISON: No previous studies available for comparison. INDICATIONS : Evaluate mass in right side of oropharynx. IV CONTRAST: 70 cc Omnipaque 350 (iohexol) IV RADIATION DOSE: 18.00 CTDIvol (mGy) MEDICAL HISTORY : Hypertension. Gastroesophageal reflux disease. SURGICAL HISTORY : None. ENCOUNTER: Initial ACUITY: 1 day PAIN SCALE: Non-responsive LOCATION: Bilateral neck TECHNIQUE: Volumetric scanning of the neck was performed. Using automated exposure control and adjustment of th e mA and/or kV according to patient size, radiation dose was kept as low as reasonably achievable to obtain optimal diagnostic quality images. DICOM format image data is available electronically for r eview and comparison. FINDINGS: An endotracheal tube is present. There is possible asymmetric fullness in the right vallecula. A well millimeters mass is not seen however. Nasopharynx demonstrates no mass. There are 2 enlarged right l evel II lymph nodes measuring 2.2 x 1.7 cm and 2.5 x 1.6 cm. Epiglottis has a normal appearance. Cleopatra nx demonstrates no abnormality. The parotid and submandibular glands are within normal limits. No int racranial abnormality is seen. Thyroid gland demonstrates no abnormality. CONCLUSION: There is asymmetric soft tissue fullness in the right vallecula. Consider direct visualization for be tter evaluation of this area. However, a discrete measurable mass is not appreciated. There is a susp icion for a mass given the 2 enlarged adjacent right level II lymph nodes. Gen Chopra MD on May 16, 2017 at 23:56 Board Certified Radiologist. This report was verified electronically.
[2017-05-17] MEDS: PROPOFOL 1000 MG/100 ML IV PRN ×3 (00:03→06:42)
[2017-05-17] MEDS: SODIUM CHLOR 0.9% 1000 ML INJ 1,000 ML IV SCH ×3 (01:03→22:31)
[2017-05-17] MEDS: RESP: ALBUTEROL 2.5 MG/IPRATROPIUM 0.5 MG NEB (PRN) INH ×2 (03:50→09:53)
[2017-05-17] MEDS: CHLORHEXIDINE GLUCONATE 2 % 1 PACK (2 CLOTHS) TOP SCH (04:00)
[2017-05-17 04:23] LABS: HEMATOCRIT 32.2 % (39.0-51.0); HEMOGLOBIN 11.2 GM/DL (13.0-17.0); MEAN CELL VOLUME 93.9 FL (80.0-100.0); MEAN CORPUSCULAR HEMOGLOBIN 32.8 PG (27.0-34.0); MEAN CORPUSCULAR HGB CONC 34.9 % (32.0-36.0); MEAN PLATELET VOLUME 7.9 FL (7.0-11.0); PLATELET COUNT 102 TH/MM3 (150-450); RED BLOOD COUNT 3.42 MIL/MM3 (4.50-5.90); RED CELL DISTRIBUTION WIDTH 15.4 % (11.6-17.2)
[2017-05-17 04:52] LABS: BICARBONATE 22.5 MEQ/L (21.0-32.0); CALCIUM 8.3 MG/DL (8.5-10.1); CREATININE 1.02 MG/DL (0.60-1.30)
[2017-05-17] MEDS: OCTREOTIDE INJ 500 MCG in SODIUM CHLORID 0.9% 500 ML INJ 500 ML IV SCH ×3 (05:08→23:31)
[2017-05-17] MEDS: DEXAMETHASONE SOD PHOS 4 MG/ML VIAL IV PUSH SCH ×2 (05:09→13:17)
--- NOTE | 2017-05-17 07:18 | HHI.CCPN ---
Subjective Remarks/Hospital Course 62yo M with PMH of esophageal varices here with c/o hematemesis that started half an hour ago. Said he vomited bright red blood with blood clots in it. Also with epigastric and left lower abdominal pain. Denies any fever, chest pain, sob, dysuria, hematuria, black stool or blood in stool. Pt was admitted 03/2013 for upper GI bleed and anemia and had endoscopy that showed esophageal varices, gastritis and duodenitis. Had transfusion of 5 units of PRBC. Pt said he has not had any problems since then so has not follow with any GI physician. Drinks alcohol occasionally. Pt said he vomited about 1000cc of bright red blood with clots that started 30 minutes prior to arrival. Subjective: 05/16: Afebrile. Hemoglobin stable overnight. No further hematemesis. The patient continues on Octreotide and Protonix infusions. Plan for EGD this a.m. with banding. 05/17: The patient underwent EGD yesterday. Upon intubation it was noted the patient had an enlarged right mass proving slight difficulty for intubation but ETT placed easily with glide scope. ENT was consulted, Dr. Mayes. CT of the neck was performed last evening. The patient remain intubated for the last 24 hours per GI recommendations. Plan for extubation this a.m. and evaluation of right next mass by Dr. Mayes later on this afternoon. Patient noted to have hemoglobin that is stable no hematemesis no melena, uneventful evening. Objective Vital Signs Date Time Temp Pulse Resp B/P (MAP) Pulse Ox O2 Delivery O2 Flow Rate FiO2 05/17/17 06:40 35 05/17/17 06:00 63 05/17/17 04:00 98.5 13 122/61 (81) 94 05/16/17 10:15 Mechanical Ventilator Intake and Output 05/17/17 05/17/17 05/17/17 07:59 15:59 23:59 Intake Total 2196.5 ml Output Total 850 ml Balance 1346.5 ml Result Diagram: 05/17/17 0347 05/17/17 0347 Other Results Laboratory Tests Test 05/16/17 11:20 Blood Gas Puncture Site RT RADIAL Blood Gas Patient Temperature 98.6 Blood Gas HCO3 23 mmol/L (22-26) Blood Gas Base Excess -1.2 mmol/L (-2-2) Blood Gas Oxygen Saturation 96 % (90-100) Arterial Blood pH 7.38 (7.380-7.420) Arterial Blood Partial Pressure CO2 40 mmHg (38-42) Arterial Blood Partial Pressure O2 117 mmHg (61-120) Arterial Blood Oxygen Content 14.6 Vol % (12.0-20.0) Arterial Blood Carboxyhemoglobin 1.2 % (0-4) Arterial Blood Methemoglobin 1.3 % (0-2) Blood Gas Hemoglobin 10.7 G/DL (12.0-16.0) Oxygen Delivery Device VENTILATOR Blood Gas Ventilator Setting A/C 600/10/5PEEP Blood Gas Inspired Oxygen 35 % Imaging Last Impressions Neck CT 05/16/17 0000 Signed Impressions: Service Date/Time: Tuesday, May 16, 2017 23:43 - CONCLUSION: There is asymmetric soft tissue fullness in the right vallecula. Consider direct visualization for better evaluation of this area. However, a discrete measurable mass is not appreciated. There is a suspicion for a mass given the 2 enlarged adjacent right level II lymph nodes. Gen Chopra MD Chest X-Ray 05/16/17 0000 Signed Impressions: Service Date/Time: Tuesday, May 16, 2017 10:15 - CONCLUSION: 1. ETT in good position. 2. Mild left lower lung zone airspace disease which may reflect atelectasis. Rios Samuel MD Abdomen/Pelvis CT 05/15/17 0000 Signed Impressions: Service Date/Time: Monday, May 15, 2017 23:10 - CONCLUSION: 1. Heterogeneous high density material filling the stomach some of which could represent blood products. 2. There are features characteristic of cirrhosis and findings indicative of portal hypertension including collateral blood vessels and splenomegaly. The suspected blood products in the stomach could be related to portal hypertension. Gen Chopra MD Last Impressions Abdomen/Pelvis CT 05/15/17 0000 Signed Impressions: Service Date/Time: Monday, May 15, 2017 23:10 - CONCLUSION: 1. Heterogeneous high density material filling the stomach some of which could represent blood products. 2. There are features characteristic of cirrhosis and findings indicative of portal hypertension including collateral blood vessels and splenomegaly. The suspected blood products in the stomach could be related to portal hypertension. Gen Chopra MD Objective Remarks GENERAL: Well-nourished, well-developed male currently intubated and sedated SKIN: Warm and dry. HEAD: Normocephalic. EYES: No scleral icterus. No injection or drainage. NECK: Supple, trachea midline. No JVD or lymphadenopathy. CARDIOVASCULAR: Regular rate and rhythm without murmurs, gallops, or rubs. RESPIRATORY: Breath sounds equal bilaterally. No accessory muscle use. GASTROINTESTINAL: Abdomen soft, non-tender, nondistended. Bowel sounds hypoactive MUSCULOSKELETAL: No cyanosis, or edema. BACK: Nontender without obvious deformity. NEURO EXAM: GCS: 15 Mental Status: Prior to intubation , the patient is alert and oriented to person , place, and time with normal speech. Motor strength 5/5 bilateral upper and lower extremities A/P Assessment and Plan Plan by systems: Neurologic: Abdominal pain Tylenol 650 mg every 6 hours when necessary for pain Respiratory: Maintain O2 sat greater than 92% Patient noted to have a difficult airway, mass right vallecula Mechanical ventilation postop FiO2 0.35, O2 sat 95-97% Begin CPAP trials with plan for extubation Obtain SBT Decadron 4 mg every 6 hours 24 hours 2/5 CT neck-asymmetric fullness right vallecula. Discrete mass not appreciated. 2 enlarged adjacent right level II lymph nodes ENT consulted-Dr. Mayes, plan for evaluation of right neck mass with direct visualization by ENT this afternoon Cardiovascular: Telemetry normal sinus rhythm Maintain MAP greater than 65 mmHg Renal: Rae catheter while intubated -- Strict I/Os FEN/GI: Esophageal varices UGI Hematemesis Nausea Maintain nothing by mouth status Continue normal saline at 84 cc/hour Follow-up GI recommendations, Dr. Couch 2/5 S/P EGD with esophageal banding Octreotide and Protonix infusions Ondansetron for nausea Heme/ID: Monitor CBC Hgb stable 11 Rocephin for SBP prophylaxis Endocrine: Hyperglycemia critical illness Glucose monitoring per ICU protocol -- SSI Prophylaxis: GI Prophylaxis Protonix infusion DVT Prophylaxis -- SCDs No pharmacological agents indicated at this time, in the setting of UGI Lines: Peripheral IVs 2. Central line if indicated Dispo: Level 3 Discussed with PRINT TRAFFIC MANAGER at bedside Physician Lyla Medellin MD May 17, 2017 07:18
[2017-05-17] MEDS: CHLORHEXIDINE 0.12% (ORAL KIT) 15 ML CUP MT SCH ×2 (08:00→19:15)
[2017-05-17] MEDS: PANTOPRAZOLE SOD 40 MG DELAYED RELEASE TAB PO SCH ×2 (09:00→19:47)
[2017-05-17] MEDS: FERROUS SULFATE 325 MG (65 MG ELEMENTAL IRON) TAB PO SCH ×2 (09:00→17:43)
[2017-05-17] MEDS: DOCUSATE SODIUM 50 MG/SENNA 8.6 MG TAB PO SCH ×2 (09:00→19:47)
[2017-05-17] MEDS: SODIUM CHLORIDE 0.9% FLUSH 10 ML FLUSH IV FLUSH SCH ×2 (09:33→19:47)
[2017-05-17] MEDS: ONDANSETRON HCL 4 MG/2 ML VIAL IV PUSH PRN ×2 (09:44→18:16)
[2017-05-17 11:56] LABS: HEPATITIS A AB IGM NEGATIVE (NEGATIVE); HEPATITIS B CORE AB IGM NEGATIVE (NEGATIVE); HEPATITIS B SURFACE ANTIGEN NEGATIVE (NEGATIVE); HEPATITIS C AB IgG NEGATIVE (NEGATIVE)
--- NOTE | 2017-05-17 12:39 | RADRPT ---
EXAM DATE/TIME: 05/17/2017 11:11 [facility] COMPARISON: CHEST SINGLE AP, May 16, 2017, 10:15. INDICATIONS : Short of breath MEDICAL HISTORY : Hypertension. Gastroesophageal reflux disease. SURGICAL HISTORY : None. ENCOUNTER: Subsequent ACUITY: 4 - 6 days PAIN SCORE: 0/10 LOCATION: chest FINDINGS: Interval extubation. There are persistent consolidative infiltrates in the medial lower lungs bilater ally with air bronchograms and loss of delineation of the medial one third of both hemidiaphragms; th e infiltrates appear to have increased in size since 05/16/17. The remainder of the lungs are clear. Th e heart is normal size. CONCLUSION: Increasing subsegmental consolidative infiltrates medial lower lungs bilaterally. José Luis Westfall MD on May 17, 2017 at 12:18 Board Certified Radiologist. This report was verified electronically.
[2017-05-17] MEDS ORDERED: FUROSEMIDE 40 MG/4 ML VIAL IV PUSH ONE (13:00)
--- NOTE | 2017-05-17 13:44 | HHI.GIFU ---
Subjective Remarks Pt resting in bed, extubated on partial rebreather. at [id number]. Had black stool this am. no further hematemesis (Sandi Villatoro) Objective Vitals I&O Vital Signs Date Time Temp Pulse Resp B/P (MAP) Pulse Ox O2 Delivery O2 Flow Rate FiO2 05/17/17 12:00 98.1 106 22 134/74 (94) 93 05/17/17 12:00 106 05/17/17 12:00 93 Partial Non-Rebreather 10.00 05/17/17 11:00 97 05/17/17 11:00 97 19 131/68 (89) 92 05/17/17 10:15 93 Partial Rebreather 10.00 05/17/17 10:00 89 Venturi Mask 6.00 50 05/17/17 10:00 96 05/17/17 10:00 96 20 140/65 (90) 94 05/17/17 09:50 92 Nasal Cannula 6.00 05/17/17 09:50 92 Nasal Cannula 6 05/17/17 09:00 90 05/17/17 09:00 90 14 144/65 (91) 90 05/17/17 08:53 91 35 05/17/17 08:51 35 05/17/17 08:49 35 05/17/17 08:00 35 05/17/17 08:00 97.6 79 11 140/69 (92) 92 05/17/17 08:00 92 05/17/17 06:40 35 05/17/17 06:00 63 05/17/17 04:00 61 05/17/17 04:00 98.5 63 13 122/61 (81) 94 05/17/17 04:00 35 05/17/17 03:50 95 35 05/17/17 02:00 61 05/17/17 00:35 94 35 05/17/17 00:00 98.4 72 17 147/86 (106) 97 05/17/17 00:00 72 05/17/17 00:00 35 05/16/17 22:00 62 05/16/17 21:27 97 35 05/16/17 20:00 98.4 62 15 117/67 (84) 98 05/16/17 20:00 62 05/16/17 20:00 35 05/16/17 18:00 58 05/16/17 17:16 100 35 05/16/17 16:00 40 05/16/17 16:00 56 05/16/17 16:00 97.9 56 5 109/58 (75) 99 05/16/17 14:00 52 I/O 05/16/17 05/16/17 05/16/17 05/17/17 05/17/17 05/17/17 07:00 15:00 23:00 07:00 15:00 23:00 Intake Total 1066 ml 363 ml 637 ml 2296.5 ml 512 ml Output Total 1750 ml 525 ml 850 ml Balance -684 ml 363 ml 112 ml 1446.5 ml 512 ml Intake Oral 0 ml IV Total 1066 ml 63 ml 637 ml 2296.5 ml 512 ml Other 300 ml Output Urine Total 1750 ml 525 ml 850 ml # Voids 4 # Bowel Movements 0 0 Laboratory Laboratory Tests Test 05/16/17 17:16 05/17/17 03:47 05/17/17 11:10 Iron Level 74 Total Iron Binding Capacity 295 Percent Iron Saturation 25.1 Ferritin 116 Tumor Marker Alpha Fetoprotein 3.0 Hepatitis A IgM Antibody NEGATIVE Hepatitis B Surface Antigen NEGATIVE Hepatitis B Core IgM Antibody NEGATIVE Hepatitis C Antibody NEGATIVE White Blood Count 11.0 Red Blood Count 3.42 Hemoglobin 11.2 Hematocrit 32.2 Mean Corpuscular Volume 93.9 Mean Corpuscular Hemoglobin 32.8 Mean Corpuscular Hemoglobin Concent 34.9 Red Cell Distribution Width 15.4 Platelet Count 102 Mean Platelet Volume 7.9 Blood Urea Nitrogen 18 Creatinine 1.02 Random Glucose 155 Calcium Level 8.3 Sodium Level 139 Potassium Level 4.1 Chloride Level 106 Carbon Dioxide Level 22.5 Anion Gap 11 Estimat Glomerular Filtration Rate 74 Lactic Acid Level 3.7 Blood Gas Puncture Site RT RADIAL Blood Gas Patient Temperature 98.6 Blood Gas HCO3 21 Blood Gas Base Excess -2.6 Blood Gas Oxygen Saturation 90 Arterial Blood pH 7.42 Arterial Blood Partial Pressure CO2 33 Arterial Blood Partial Pressure O2 64 Arterial Blood Oxygen Content 14.0 Arterial Blood Carboxyhemoglobin 1.0 Arterial Blood Methemoglobin 1.6 Blood Gas Hemoglobin 11.1 Oxygen Delivery Device Partial Rebreather Blood Gas Liter Flow 10 Imaging Last Impressions Chest X-Ray 05/17/17 0000 Signed Impressions: Service Date/Time: Wednesday, May 17, 2017 11:11 - CONCLUSION: Increasing subsegmental consolidative infiltrates medial lower lungs bilaterally. José Luis Westfall MD Neck CT 05/16/17 0000 Signed Impressions: Service Date/Time: Tuesday, May 16, 2017 23:43 - CONCLUSION: There is asymmetric soft tissue fullness in the right vallecula. Consider direct visualization for better evaluation of this area. However, a discrete measurable mass is not appreciated. There is a suspicion for a mass given the 2 enlarged adjacent right level II lymph nodes. Gen Chopra MD Abdomen/Pelvis CT 05/15/17 0000 Signed Impressions: Service Date/Time: Monday, May 15, 2017 23:10 - CONCLUSION: 1. Heterogeneous high density material filling the stomach some of which could represent blood products. 2. There are features characteristic of cirrhosis and findings indicative of portal hypertension including collateral blood vessels and splenomegaly. The suspected blood products in the stomach could be related to portal hypertension. Gen Chopra MD Physical Exam HEENT: PERRL; normocephalic; atraumatic; subtley icteric. nonrebreather CHEST: CTA CARDIAC: RRR ABDOMEN: Soft, nondistended, nontender; no hepatosplenomegaly; bowel sounds are present in all four quadrants. EXTREMITIES: No clubbing, cyanosis, or edema. 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 (Sandi Villatoro [facility]) Assessment and Plan Plan Assessment: - Hematemesis- started last night 30 mins prior to arrival to ED. History of upper GIB in 2012- EGD revealing esophageal varices at the time. Pt now S/P EGD today which revealed esophageal varices s/p banding x 3, mass to right side of oropharynx, blood in stomach some old, some fresh, no active bleeding. Retained food in stomach. - Cirrhosis with portal HTN- CT abdomen and pelvis W IV contrast noted (05/15) -- > Heterogeneous high density material filling the stomach some of which could represent blood products. There are features characteristic of cirrhosis and finding indicative of portal hypertension including collateral blood vessels and splenomegaly. The suspected blood products in the stomach could be related to portal hypertension. Pt reports occasional ETOH use. LFTs currently WNL. Albumin WNL, no coagulopathy. - Mass to right side of oropharynx- found during EGD 05/17/17 _ black tarry stool, no fresh bleeding. ENT consult pending. CT neck noted, suspicious for mass. HH relatively stable. liver w/u pending. AFP 3. Plan: - await Liver workup - Continue Protonix gtt - await ENT consult - Monitor H/H closely - supportive care Pt has been seen and examined by myself and Dr. Couch and this note is written on her behalf (Sandi Villatoro) Physician Comments seen, examined agree with above ent consult appreciated (Yamileth Couch MD) Sandi Villatoro May 17, 2017 13:44 Yamileth Couch MD May 17, 2017 21:20
[2017-05-17 14:07] LABS: ANA SCREEN NEG (NEG)
--- NOTE | 2017-05-17 14:52 | MB ---
cc: GABRIELA HORN M.D., BEATRICE S. M.D. YOUNG, LINDA W. MD DATE OF CONSULTATION 05/17/2017 REASON FOR ENT CONSULTATION Soft tissue mass, right base of tongue. HISTORY OF PRESENT ILLNESS Gabriela Deluca is a 62-year-old man previously in good health. He reports that on Monday evening of this week he was sitting at home when he became nauseated and then began vomiting fresh blood. He presented to the emergency room where he was found to have upper GI bleeding which was treated with endoscopic banding of esophageal varices on MondayMay 16. At that procedure there was some difficulty with intubation due to the presence of a mass involving the right base of tongue previously unrecognized. A CT scan was obtained which shows a lesion in the right tongue base just anterior to the epiglottis. It appears somewhat cystic on the CT scan. The patient denies awareness of any lesion in the pharynx. He states he swallows easily. No airway compromise. No change in his voice. He denies ear pain. He has never been a cigarette smoker. He states when he was a child he had very large tonsils which were removed. He still "snores like a bear" and notes history of chronic sinusitis and is frequently draining purulent material from his nose anteriorly and posteriorly. ALLERGIES He has no known drug allergies. PAST MEDICAL HISTORY 1. Hypertension. 2. Osteoarthritis. 3. Gout. 4. Reflux. MEDICATIONS Medications prior to admission are: 1. Propranolol. 2. Protonix. 3. Losartan. 4. Ferrous sulfate. 5. Allopurinol. SOCIAL HISTORY He is a non-smoker, has an occasional alcoholic beverage, lives with his family. No drug use. PHYSICAL EXAMINATION GENERAL: On examination today he is alert and cooperative. He has a non-rebreather mask and place. VITAL SIGNS: Temperature 98.1, pulse 97, respirations 19, blood pressure 134/74, pulse oximetry 93% on room air. HEAD: Normocephalic and atraumatic. Face is normal. EARS: Normal auricles, ear canals and tympanic membranes. ORAL CAVITY: Teeth in fair condition. No evidence of mucosal lesions on inspection or palpation. There is significant torus mandibularis in the floor of mouth. NECK: No nodes or masses. Larynx and trachea midline. Normal salivary and thyroid glands. Flexible fiberoptic pharyngoscopy shows patent nasal airways, normal nasopharynx. There is an exophytic soft tissue mass in the midline and right vallecula. This does not appear cystic, it appears possibly neoplastic. It obstructs the hypopharyngeal airway approximately 40%. There is no evidence of lesions below the level of the vallecula. ASSESSMENT Soft tissue mass right hypopharynx and base of tongue. PLAN Discussed these findings with the patient and his . Advised them we need to obtain a biopsy from this site to rule out the possibility of malignancy. Advised them that HPV-related squamous cell carcinoma tops the list of differential diagnoses of this lesion. Would prefer that he be resolved of his pulmonary problems prior to repeating general anesthesia and will follow him in-house. Will be happy to see him back as an outpatient in the very near future with scheduled procedure on an outpatient basis. If he remains in hospital would possibly do it in the operating room here early next week. Will follow with you. MD TL Hong/KARIN /1:58 PM /2:30 PM
[2017-05-17] MEDS: cefTRIAXone INJ 2,000 MG in SODIUM CHLORIDE 0.9% INJ 100 ML IV SCH (23:31)
[2017-05-18] VITALS (18 sets, daily range): BP systolic 117–166; BP diastolic 57–89; PULSE 68–107; RESP 14–20; TEMP 97.5–98.9; O2SAT 92–98
[2017-05-18] MEDS: CHLORHEXIDINE GLUCONATE 2 % 1 PACK (2 CLOTHS) TOP SCH (04:00)
[2017-05-18 05:18] LABS: HEMATOCRIT 30.1 % (39.0-51.0); HEMOGLOBIN 10.6 GM/DL (13.0-17.0); MEAN CELL VOLUME 92.9 FL (80.0-100.0); MEAN CORPUSCULAR HEMOGLOBIN 32.7 PG (27.0-34.0); MEAN CORPUSCULAR HGB CONC 35.2 % (32.0-36.0); MEAN PLATELET VOLUME 7.1 FL (7.0-11.0); PLATELET COUNT 101 TH/MM3 (150-450); RED BLOOD COUNT 3.24 MIL/MM3 (4.50-5.90); RED CELL DISTRIBUTION WIDTH 15.5 % (11.6-17.2); WHITE BLOOD COUNT 10.9 TH/MM3 (4.0-11.0)
[2017-05-18 05:37] LABS: BICARBONATE 25.9 MEQ/L (21.0-32.0); CALCIUM 7.8 MG/DL (8.5-10.1); MAGNESIUM 2.4 MG/DL (1.5-2.5); PHOSPHORUS 2.3 MG/DL (2.5-4.9)
--- NOTE | 2017-05-18 07:28 | HHI.CCPN ---
Subjective Remarks/Hospital Course 62yo M with PMH of esophageal varices here with c/o hematemesis that started half an hour ago. Said he vomited bright red blood with blood clots in it. Also with epigastric and left lower abdominal pain. Denies any fever, chest pain, sob, dysuria, hematuria, black stool or blood in stool. Pt was admitted 03/2013 for upper GI bleed and anemia and had endoscopy that showed esophageal varices, gastritis and duodenitis. Had transfusion of 5 units of PRBC. Pt said he has not had any problems since then so has not follow with any GI physician. Drinks alcohol occasionally. Pt said he vomited about 1000cc of bright red blood with clots that started 30 minutes prior to arrival. Subjective: 05/16: Afebrile. Hemoglobin stable overnight. No further hematemesis. The patient continues on Octreotide and Protonix infusions. Plan for EGD this a.m. with banding. 05/17: The patient underwent EGD yesterday. Upon intubation it was noted the patient had an enlarged right mass proving slight difficulty for intubation but ETT placed easily with glide scope. ENT was consulted, Dr. Mayes. CT of the neck was performed last evening. The patient remain intubated for the last 24 hours per GI recommendations. Plan for extubation this a.m. and evaluation of right next mass by Dr. Mayes later on this afternoon. Patient noted to have hemoglobin that is stable no hematemesis no melena, uneventful evening. 05/18: Afebrile .No acute events overnight. The patient was extubated yesterday morning. ENT evaluated right neck mass with flexible bronchoscopy under direct visualization, to be treated on outpatient basis. No further hematemesis hemoglobin is stable. Patient tolerated a clear liquid diet advance to regular this a.m.. Objective Vital Signs Date Time Temp Pulse Resp B/P (MAP) Pulse Ox O2 Delivery O2 Flow Rate FiO2 05/18/17 06:00 80 05/18/17 04:00 98.5 16 134/62 (86) 98 05/17/17 21:17 Nasal Cannula 6.00 05/17/17 10:00 50 Intake and Output 05/18/17 05/18/17 05/18/17 07:59 15:59 23:59 Intake Total 340 ml Output Total 1500 ml Balance -1160 ml Result Diagram: 05/18/17 3205 05/18/17 0455 Other Results Laboratory Tests Test 05/17/17 11:10 Blood Gas Puncture Site RT RADIAL Blood Gas Patient Temperature 98.6 Blood Gas HCO3 21 mmol/L (22-26) Blood Gas Base Excess -2.6 mmol/L (-2-2) Blood Gas Oxygen Saturation 90 % (90-100) Arterial Blood pH 7.42 (7.380-7.420) Arterial Blood Partial Pressure CO2 33 mmHg (38-42) Arterial Blood Partial Pressure O2 64 mmHg (61-120) Arterial Blood Oxygen Content 14.0 Vol % (12.0-20.0) Arterial Blood Carboxyhemoglobin 1.0 % (0-4) Arterial Blood Methemoglobin 1.6 % (0-2) Blood Gas Hemoglobin 11.1 G/DL (12.0-16.0) Oxygen Delivery Device Partial Rebreather Blood Gas Liter Flow 10 L/M Imaging Last Impressions Neck CT 05/16/17 0000 Signed Impressions: Service Date/Time: Tuesday, May 16, 2017 23:43 - CONCLUSION: There is asymmetric soft tissue fullness in the right vallecula. Consider direct visualization for better evaluation of this area. However, a discrete measurable mass is not appreciated. There is a suspicion for a mass given the 2 enlarged adjacent right level II lymph nodes. Gen Chopra MD Chest X-Ray 05/16/17 0000 Signed Impressions: Service Date/Time: Tuesday, May 16, 2017 10:15 - CONCLUSION: 1. ETT in good position. 2. Mild left lower lung zone airspace disease which may reflect atelectasis. Rios Samuel MD Abdomen/Pelvis CT 05/15/17 0000 Signed Impressions: Service Date/Time: Monday, May 15, 2017 23:10 - CONCLUSION: 1. Heterogeneous high density material filling the stomach some of which could represent blood products. 2. There are features characteristic of cirrhosis and findings indicative of portal hypertension including collateral blood vessels and splenomegaly. The suspected blood products in the stomach could be related to portal hypertension. Gen Chopra MD Last Impressions Abdomen/Pelvis CT 05/15/17 0000 Signed Impressions: Service Date/Time: Monday, May 15, 2017 23:10 - CONCLUSION: 1. Heterogeneous high density material filling the stomach some of which could represent blood products. 2. There are features characteristic of cirrhosis and findings indicative of portal hypertension including collateral blood vessels and splenomegaly. The suspected blood products in the stomach could be related to portal hypertension. Gen Chopra MD Objective Remarks GENERAL: Well-nourished, well-developed male sitting up in bed, in no apparent distress SKIN: Warm and dry. HEAD: Normocephalic. EYES: No scleral icterus. No injection or drainage. NECK: Supple, trachea midline. No JVD or lymphadenopathy. CARDIOVASCULAR: Regular rate and rhythm without murmurs, gallops, or rubs. RESPIRATORY: Breath sounds equal bilaterally. No accessory muscle use. GASTROINTESTINAL: Abdomen soft, non-tender, nondistended. Bowel sounds hypoactive MUSCULOSKELETAL: No cyanosis, or edema. BACK: Nontender without obvious deformity. NEURO EXAM: GCS: 15 Mental Status: GCS 15. Alert and oriented to person, place, and time with normal speech. Motor strength 5/5 bilateral upper and lower extremities A/P Assessment and Plan Hematemesis-resolved - History of underlying esophageal varices - ICU admission - Nothing by mouth - Gastroenterology consultation - Series of H&H - Pantoprazole drip - Octreotide drip - Rocephin for SBP prophylaxis Right soft tissue neck mass - Extubated 05/17 - Evaluated by ENT Dr. Mayes - Patient to be seen on an outpatient basis by ENT for further evaluation, possible neoplastic process History of hypertension - Hold all antihypertensive meds due to active GI bleed Anemia - Blood loss - Series of H&H - Transfuse for hemoglobin less than 7 or if hemodynamically unstable DVT GI prophylaxis - Teds SCDs - No pharmacological DVT prophylaxis due to acute GI bleed - Protonix drip Critical Care: Level II follow-up Discussed with SUPER[employer] at bedside (Patricia) and patient. Plan transfer to [facility] floor when bed available. Plan transfer to [facility] Physician Lyla Medellin MD May 18, 2017 07:28
[2017-05-18] MEDS: CHLORHEXIDINE 0.12% (ORAL KIT) 15 ML CUP MT SCH ×2 (07:59→20:00)
[2017-05-18] MEDS: PANTOPRAZOLE SOD 40 MG DELAYED RELEASE TAB PO SCH ×2 (08:24→20:41)
[2017-05-18] MEDS: DOCUSATE SODIUM 50 MG/SENNA 8.6 MG TAB PO SCH ×2 (08:24→20:41)
[2017-05-18] MEDS: FERROUS SULFATE 325 MG (65 MG ELEMENTAL IRON) TAB PO SCH ×2 (08:24→17:51)
[2017-05-18] MEDS: SODIUM CHLORIDE 0.9% FLUSH 10 ML FLUSH IV FLUSH SCH ×2 (09:00→20:40)
[2017-05-18] MEDS: OCTREOTIDE INJ 500 MCG in SODIUM CHLORID 0.9% 500 ML INJ 500 ML IV SCH ×2 (10:35→20:40)
[2017-05-18 12:13] LABS: SMOOTH MUSCLE TOTAL AUTOABS Negative (Negative)
--- NOTE | 2017-05-18 15:56 | HHI.GIFU ---
Subjective Remarks pt resting in bed in NAD. Doesn't feel like eating. no further bleeding (Sandi Villatoro) Objective Vitals I&O Vital Signs Date Time Temp Pulse Resp B/P (MAP) Pulse Ox O2 Delivery O2 Flow Rate FiO2 05/18/17 12:10 74 05/18/17 12:00 97.5 84 20 149/72 (97) 94 05/18/17 09:55 Room Air 05/18/17 09:19 88 161/84 (109) 94 05/18/17 09:15 90 93 05/18/17 09:00 92 92 05/18/17 08:45 88 94 05/18/17 08:30 83 16 157/83 (107) 93 05/18/17 08:15 93 Nasal Cannula 1.00 05/18/17 08:15 85 14 92 05/18/17 08:00 68 05/18/17 08:00 87 14 154/82 (106) 92 05/18/17 06:00 80 05/18/17 04:00 98.5 82 16 134/62 (86) 98 05/18/17 04:00 82 05/18/17 02:00 73 05/18/17 00:00 98.6 86 15 138/66 (90) 98 05/18/17 00:00 86 05/17/17 22:00 85 05/17/17 21:17 97 Nasal Cannula 6.00 05/17/17 20:00 99.7 100 21 128/60 (82) 97 05/17/17 20:00 100 05/17/17 19:00 95 Nasal Cannula 6.00 05/17/17 18:00 101 05/17/17 17:45 94 Nasal Cannula 6.00 05/17/17 17:00 104 05/17/17 16:00 104 05/17/17 16:00 97.9 104 15 132/70 (90) 93 I/O 05/17/17 05/17/17 05/17/17 05/18/17 05/18/17 05/18/17 07:00 15:00 23:00 07:00 15:00 23:00 Intake Total 2296.5 ml 512 ml 1240 ml 840.5 ml 500 ml 480 ml Output Total 850 ml 3150 ml 1500 ml Balance 1446.5 ml 512 ml -1910 ml -659.5 ml 500 ml 480 ml Intake Oral 240 ml 240 ml 480 ml IV Total 2296.5 ml 512 ml 1000 ml 600.5 ml 500 ml Output Urine Total 850 ml 3150 ml 1500 ml # Bowel Movements 0 0 0 Laboratory Laboratory Tests Test 05/18/17 04:55 White Blood Count 10.9 Red Blood Count 3.24 Hemoglobin 10.6 Hematocrit 30.1 Mean Corpuscular Volume 92.9 Mean Corpuscular Hemoglobin 32.7 Mean Corpuscular Hemoglobin Concent 35.2 Red Cell Distribution Width 15.5 Platelet Count 101 Mean Platelet Volume 7.1 Blood Urea Nitrogen 23 Creatinine 1.00 Random Glucose 151 Calcium Level 7.8 Phosphorus Level 2.3 Magnesium Level 2.4 Sodium Level 143 Potassium Level 3.7 Chloride Level 110 Carbon Dioxide Level 25.9 Anion Gap 7 Estimat Glomerular Filtration Rate 76 Lactic Acid Level 2.8 Imaging Last Impressions Chest X-Ray 05/17/17 0000 Signed Impressions: Service Date/Time: Wednesday, May 17, 2017 11:11 - CONCLUSION: Increasing subsegmental consolidative infiltrates medial lower lungs bilaterally. José Luis Westfall MD Neck CT 05/16/17 0000 Signed Impressions: Service Date/Time: Tuesday, May 16, 2017 23:43 - CONCLUSION: There is asymmetric soft tissue fullness in the right vallecula. Consider direct visualization for better evaluation of this area. However, a discrete measurable mass is not appreciated. There is a suspicion for a mass given the 2 enlarged adjacent right level II lymph nodes. Gen Chopra MD Abdomen/Pelvis CT 05/15/17 0000 Signed Impressions: Service Date/Time: Monday, May 15, 2017 23:10 - CONCLUSION: 1. Heterogeneous high density material filling the stomach some of which could represent blood products. 2. There are features characteristic of cirrhosis and findings indicative of portal hypertension including collateral blood vessels and splenomegaly. The suspected blood products in the stomach could be related to portal hypertension. Gen Chopra MD Physical Exam HEENT: PERRL; normocephalic; atraumatic; CHEST: CTA CARDIAC: RRR ABDOMEN: Soft, nondistended, nontender; no hepatosplenomegaly; bowel sounds are present in all four quadrants. EXTREMITIES: No clubbing, cyanosis, or edema. 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 (Sandi Villatoro) Assessment and Plan Plan Assessment: - Hematemesis- started last night 30 mins prior to arrival to ED. History of upper GIB in 2012- EGD revealing esophageal varices at the time. Pt now S/P EGD today which revealed esophageal varices s/p banding x 3, mass to right side of oropharynx, blood in stomach some old, some fresh, no active bleeding. Retained food in stomach. - Cirrhosis with portal HTN- CT abdomen and pelvis W IV contrast noted (05/15) -- > Heterogeneous high density material filling the stomach some of which could represent blood products. There are features characteristic of cirrhosis and finding indicative of portal hypertension including collateral blood vessels and splenomegaly. The suspected blood products in the stomach could be related to portal hypertension. Pt reports occasional ETOH use. LFTs currently WNL. Albumin WNL, no coagulopathy. - Mass to right side of oropharynx- found during EGD 05/17/17 _ black tarry stool, no fresh bleeding. ENT consult pending. CT neck noted, suspicious for mass. HH relatively stable. liver w/u pending. AFP 3. 05/18/17 hh mild decline today. no obvious bleeding. ENT following, bx outpt. liver w/u so far unremarkable. hep panel neg. constipated, just took lactulose Plan: - await rest of Liver workup - PPI - Monitor H/H closely - supportive care Pt has been seen and examined by myself and Dr. Couch and this note is written on her behalf (Sandi Villatoro) Physician Comments seen, examined agree with above (Yamileth Couch MD) Sandi Villatoro May 18, 2017 15:56 Yamileth Couch MD May 18, 2017 18:52
[2017-05-18] MEDS: cefTRIAXone INJ 2,000 MG in SODIUM CHLORIDE 0.9% INJ 100 ML IV SCH (22:56)
[2017-05-19] MEDS: CHLORHEXIDINE GLUCONATE 2 % 1 PACK (2 CLOTHS) TOP SCH (04:00)
[2017-05-19 04:12] VITALS: BP 135/69; PULSE 67; RESP 18; TEMP 98.1; O2SAT 95
[2017-05-19] MEDS: OCTREOTIDE INJ 500 MCG in SODIUM CHLORID 0.9% 500 ML INJ 500 ML IV SCH (06:22)
[2017-05-19 07:10] LABS: HEMATOCRIT 30.4 % (39.0-51.0); HEMOGLOBIN 10.7 GM/DL (13.0-17.0); MEAN CORPUSCULAR HEMOGLOBIN 32.7 PG (27.0-34.0); MEAN CORPUSCULAR HGB CONC 35.2 % (32.0-36.0); MEAN PLATELET VOLUME 6.7 FL (7.0-11.0); PLATELET COUNT 109 TH/MM3 (150-450); RED BLOOD COUNT 3.27 MIL/MM3 (4.50-5.90); RED CELL DISTRIBUTION WIDTH 15.7 % (11.6-17.2); WHITE BLOOD COUNT 9.3 TH/MM3 (4.0-11.0)
[2017-05-19] MEDS: CHLORHEXIDINE 0.12% (ORAL KIT) 15 ML CUP MT SCH (08:00)
[2017-05-19 08:09] VITALS: BP 142/83; PULSE 64; RESP 18; TEMP 98; O2SAT 95
[2017-05-19 08:14] VITALS: PULSE 59
[2017-05-19] MEDS: PANTOPRAZOLE SOD 40 MG DELAYED RELEASE TAB PO SCH (08:42)
[2017-05-19] MEDS: DOCUSATE SODIUM 50 MG/SENNA 8.6 MG TAB PO SCH (08:42)
[2017-05-19] MEDS: FERROUS SULFATE 325 MG (65 MG ELEMENTAL IRON) TAB PO SCH (08:42)
[2017-05-19] MEDS: SODIUM CHLORIDE 0.9% FLUSH 10 ML FLUSH IV FLUSH SCH (08:43)
[2017-05-19] MEDS ORDERED: LOSARTAN 25 MG TAB PO SCH (09:00)
[2017-05-19] MEDS ORDERED: ALLOPURINOL 100 MG TAB PO SCH (09:00)
[2017-05-19] MEDS ORDERED: COZA25TA PO (10:56)
[2017-05-19] MEDS ORDERED: PROP20TA3 PO (10:56)
[2017-05-19] MEDS ORDERED: PANT40TA3 PO (10:56)
--- NOTE | 2017-05-19 12:05 | HHI.PR ---
Subjective Remarks Follow up for GI bleed. Patient is currently doing well. No acute concerns. No further bleeding. Objective Vitals Vital Signs Date Time Temp Pulse Resp B/P (MAP) Pulse Ox O2 Delivery O2 Flow Rate FiO2 05/19/17 08:14 59 05/19/17 08:09 98.0 64 18 142/83 (102) 95 05/19/17 04:12 98.1 67 18 135/69 (91) 95 05/18/17 23:55 98.9 75 16 117/57 (77) 95 05/18/17 22:07 75 05/18/17 20:48 94 Room Air 05/18/17 20:00 97.7 80 18 166/89 (114) 98 05/18/17 16:52 98.7 73 20 154/85 (108) 94 05/18/17 16:30 107 05/18/17 12:10 74 05/18/17 12:00 97.5 84 20 149/72 (97) 94 I/O 05/18/17 05/18/17 05/18/17 05/19/17 05/19/17 05/19/17 07:00 15:00 23:00 07:00 15:00 23:00 Intake Total 840.5 ml 500 ml 880 ml 520 ml Output Total 1500 ml Balance -659.5 ml 500 ml 880 ml 520 ml Intake Oral 240 ml 480 ml IV Total 600.5 ml 500 ml 400 ml 520 ml Output Urine Total 1500 ml # Voids 1 # Bowel Movements 0 1 Result Diagram: 05/19/17 0654 05/18/17 0455 Imaging Last Impressions Chest X-Ray 05/17/17 0000 Signed Impressions: Service Date/Time: Wednesday, May 17, 2017 11:11 - CONCLUSION: Increasing subsegmental consolidative infiltrates medial lower lungs bilaterally. José Luis Westfall MD Neck CT 05/16/17 0000 Signed Impressions: Service Date/Time: Tuesday, May 16, 2017 23:43 - CONCLUSION: There is asymmetric soft tissue fullness in the right vallecula. Consider direct visualization for better evaluation of this area. However, a discrete measurable mass is not appreciated. There is a suspicion for a mass given the 2 enlarged adjacent right level II lymph nodes. Gen Chopra MD Abdomen/Pelvis CT 05/15/17 0000 Signed Impressions: Service Date/Time: Monday, May 15, 2017 23:10 - CONCLUSION: 1. Heterogeneous high density material filling the stomach some of which could represent blood products. 2. There are features characteristic of cirrhosis and findings indicative of portal hypertension including collateral blood vessels and splenomegaly. The suspected blood products in the stomach could be related to portal hypertension. Gen Chopra MD Objective Remarks GENERAL: AOX3, NAD. SKIN: Warm and dry. HEAD: Normocephalic. EYES: No scleral icterus. No injection or drainage. NECK: Supple, trachea midline. No JVD or lymphadenopathy. CARDIOVASCULAR: Regular rate and rhythm without murmurs, gallops, or rubs. RESPIRATORY: Breath sounds equal bilaterally. No accessory muscle use. GASTROINTESTINAL: Abdomen soft, non-tender, nondistended. MUSCULOSKELETAL: No cyanosis, or edema. BACK: Nontender without obvious deformity. No CVA tenderness. Procedures EGD 05/16/2017 1. Esophageal varices grade 3-3 columns-s/p banding-3 difficult intubation to mass right side of oropharynx blood in stomach -some old, some fresh-agressive washing done no active bleeding retained food in stomach 2. Retroflexed views revealed old blood A/P Problem List: (1) UGIB (upper gastrointestinal bleed) ICD Code: K92.2 - UGIB (upper gastrointestinal bleed) Status: Acute (2) Liver cirrhosis ICD Code: K74.60 - Unspecified cirrhosis of liver (3) Esophageal varices ICD Code: I85.00 - Esophageal varices Status: Acute (4) HTN (hypertension) ICD Code: I10 - HTN (hypertension) Status: Acute Assessment and Plan Mr. Deluca is a 62 year old male with a history of liver cirrhosis, esophageal varices who was admitted to the hospital due to hematemesis. He underwent EGD status post banding. There was a right sided oropharynx mass discovered during intubation. ENT was consulted for oropharynx mass. - Acute upper GI bleed - Esophageal varices - Liver cirrhosis - Patient is currently on ceftriaxone 2 g every 24 hours, octreotide 500 g IV every 10 hours - Continue Protonix 40 mg every 12 hours - Right hypopharynx mass - ENT evaluated patient on 05/17/2017. Recommended outpatient follow-up for future biopsy. - If patient remains in the hospital, possible biopsy in the or early next week. - Hypertension - Patient takes losartan 100 mg at home. Currently without blood pressure medications, his blood pressure is controlled. - We'll continue losartan 25 mg daily. - Gout - continue home medication allopurinol 100 mg by mouth daily Full code. SCDs. Discharge plan: Tried to get in touch with GI attending as well as GI nurse practitioner. If GI clears for discharge, patient can go home today. Tavo Finch DO May 19, 2017 12:05 pm
[2017-05-19 12:07] VITALS: BP 155/78; PULSE 63; RESP 18; TEMP 98.2; O2SAT 95
[2017-05-19] MEDS ORDERED: CIPR500T2 PO (12:12)
--- NOTE | 2017-05-19 12:15 | HHI.GIFU ---
Subjective Remarks Pt sitting up in bed. Denies any GI complaints at this time. Has had a few BMs since EGD a few days ago. Tolerating regular diet. Objective Vitals I&O Vital Signs Date Time Temp Pulse Resp B/P (MAP) Pulse Ox O2 Delivery O2 Flow Rate FiO2 05/19/17 12:07 98.2 63 18 155/78 (103) 95 05/19/17 08:14 59 05/19/17 08:09 98.0 64 18 142/83 (102) 95 05/19/17 04:12 98.1 67 18 135/69 (91) 95 05/18/17 23:55 98.9 75 16 117/57 (77) 95 05/18/17 22:07 75 05/18/17 20:48 94 Room Air 05/18/17 20:00 97.7 80 18 166/89 (114) 98 05/18/17 16:52 98.7 73 20 154/85 (108) 94 05/18/17 16:30 107 I/O 05/18/17 05/18/17 05/18/17 05/19/17 05/19/17 05/19/17 07:00 15:00 23:00 07:00 15:00 23:00 Intake Total 840.5 ml 500 ml 880 ml 520 ml Output Total 1500 ml Balance -659.5 ml 500 ml 880 ml 520 ml Intake Oral 240 ml 480 ml IV Total 600.5 ml 500 ml 400 ml 520 ml Output Urine Total 1500 ml # Voids 1 # Bowel Movements 0 1 Laboratory Laboratory Tests Test 05/19/17 06:54 White Blood Count 9.3 Red Blood Count 3.27 Hemoglobin 10.7 Hematocrit 30.4 Mean Corpuscular Volume 93.0 Mean Corpuscular Hemoglobin 32.7 Mean Corpuscular Hemoglobin Concent 35.2 Red Cell Distribution Width 15.7 Platelet Count 109 Mean Platelet Volume 6.7 Imaging Last Impressions Chest X-Ray 05/17/17 0000 Signed Impressions: Service Date/Time: Wednesday, May 17, 2017 11:11 - CONCLUSION: Increasing subsegmental consolidative infiltrates medial lower lungs bilaterally. José Luis Westfall MD Neck CT 05/16/17 0000 Signed Impressions: Service Date/Time: Tuesday, May 16, 2017 23:43 - CONCLUSION: There is asymmetric soft tissue fullness in the right vallecula. Consider direct visualization for better evaluation of this area. However, a discrete measurable mass is not appreciated. There is a suspicion for a mass given the 2 enlarged adjacent right level II lymph nodes. Gen Chopra MD Abdomen/Pelvis CT 05/15/17 0000 Signed Impressions: Service Date/Time: Monday, May 15, 2017 23:10 - CONCLUSION: 1. Heterogeneous high density material filling the stomach some of which could represent blood products. 2. There are features characteristic of cirrhosis and findings indicative of portal hypertension including collateral blood vessels and splenomegaly. The suspected blood products in the stomach could be related to portal hypertension. Gen Chopra MD Physical Exam HEENT: Normocephalic; atraumatic; CHEST: CTA CARDIAC: RRR ABDOMEN: Distended, soft, nontender, bowel sounds active EXTREMITIES: No clubbing, cyanosis, or edema. SKIN: Normal; no rash ELECTRICAL EXPERIMENTAL MECHANIC: No focal deficits; alert and oriented times three. Assessment and Plan Plan Assessment: - Hematemesis- started last night 30 mins prior to arrival to ED. History of upper GIB in 2012- EGD revealing esophageal varices at the time. Pt now S/P EGD today which revealed esophageal varices s/p banding x 3, mass to right side of oropharynx, blood in stomach some old, some fresh, no active bleeding. Retained food in stomach. - Cirrhosis with portal HTN- CT abdomen and pelvis W IV contrast noted (05/15) -- > Heterogeneous high density material filling the stomach some of which could represent blood products. There are features characteristic of cirrhosis and finding indicative of portal hypertension including collateral blood vessels and splenomegaly. The suspected blood products in the stomach could be related to portal hypertension. Pt reports occasional ETOH use. LFTs currently WNL. Albumin WNL, no coagulopathy. - Mass to right side of oropharynx- found during EGD 05/17/17 _ black tarry stool, no fresh bleeding. ENT consult pending. CT neck noted, suspicious for mass. HH relatively stable. liver w/u pending. AFP 3. 05/18/17 hh mild decline today. no obvious bleeding. ENT following, bx outpt. liver w/u so far unremarkable. hep panel neg. constipated, just took lactulose (05/19) --> Pt with no GI complaints today. Reports tolerating regular food. Denies any continued hematemesis. Reports BMs since EGD. H/H stable, currently 10.7/30.4, has not received blood transfusion. Denies abdominal pain. Rest of liver workup still pending. Octreotide gtt DCd. Spoke with Dr. Finch , pt OK to be discharged from a gI standpoint. DCd with Propranolol, PPI, and Lactulose. Have pt follow up in the office regarding liver workup. Plan: - Inderal - Protonix - Lactulose - Follow up with GI after discharge regarding liver workup Pt has been seen and examined by myself and Dr. Couch and this note is written on her behalf Jaimie Jones May 19, 2017 12:15
--- NOTE | 2017-05-19 12:15 | HHI.DS ---
Discharge Summary Admission Date May 15, 2017 at 10:25 pm Discharge Date: May 19, 2017 Admitting Diagnosis Upper GI bleed (1) UGIB (upper gastrointestinal bleed) ICD Code: K92.2 - UGIB (upper gastrointestinal bleed) Status: Acute (2) Liver cirrhosis ICD Code: K74.60 - Unspecified cirrhosis of liver (3) Esophageal varices ICD Code: I85.00 - Esophageal varices Status: Acute (4) HTN (hypertension) ICD Code: I10 - HTN (hypertension) Status: Acute Procedures EGD 05/16/2017 1. Esophageal varices grade 3-3 columns-s/p banding-3 difficult intubation to mass right side of oropharynx blood in stomach -some old, some fresh-agressive washing done no active bleeding retained food in stomach 2. Retroflexed views revealed old blood Brief History - From Admission 62 year old very pleasant gentleman with past medical history of esophageal varices presents with complains of hematemesis that started half an hour prior to admission. He vomited bright red blood with blood clots in it. Also with epigastric and left lower abdominal pain. Denies any fever, chest pain, sob, dysuria, hematuria, black stool or blood in stool. Pt was admitted 03/2013 for upper GI bleed and anemia and had endoscopy that showed esophageal varices, gastritis and duodenitis. Had transfusion of 5 units of PRBC. Per patient he has not had any problems since then so has not follow with any GI physician. Drinks alcohol occasionally. Case was discussed with and ED attending with Dr. Couch, arrt technologist contribution solicitor who recommended a transfer to [facility] and ICU admission CBC/BMP: 05/19/17 0654 05/18/17 0455 Significant Findings Laboratory Tests Test 05/16/17 17:16 05/17/17 03:47 05/17/17 11:10 05/18/17 04:55 Red Blood Count 3.42 MIL/MM3 (4.50-5.90) 3.24 MIL/MM3 (4.50-5.90) Hemoglobin 11.2 GM/DL (13.0-17.0) 10.6 GM/DL (13.0-17.0) Hematocrit 32.2 % (39.0-51.0) 30.1 % (39.0-51.0) Platelet Count 102 TH/MM3 (150-450) 101 TH/MM3 (150-450) Random Glucose 155 MG/DL (74-106) 151 MG/DL (74-106) Calcium Level 8.3 MG/DL (8.5-10.1) 7.8 MG/DL (8.5-10.1) Estimat Glomerular Filtration Rate 74 ML/MIN (>89) 76 ML/MIN (>89) Lactic Acid Level 3.7 mmol/L (0.4-2.0) 2.8 mmol/L (0.4-2.0) Blood Gas HCO3 21 mmol/L (22-26) Blood Gas Base Excess -2.6 mmol/L (-2-2) Arterial Blood Partial Pressure CO2 33 mmHg (38-42) Blood Gas Hemoglobin 11.1 G/DL (12.0-16.0) Blood Urea Nitrogen 23 MG/DL (7-18) Phosphorus Level 2.3 MG/DL (2.5-4.9) Chloride Level 110 MEQ/L (98-107) Test 05/19/17 06:54 Red Blood Count 3.27 MIL/MM3 (4.50-5.90) Hemoglobin 10.7 GM/DL (13.0-17.0) Hematocrit 30.4 % (39.0-51.0) Platelet Count 109 TH/MM3 (150-450) Mean Platelet Volume 6.7 FL (7.0-11.0) Imaging Last Impressions Chest X-Ray 05/17/17 0000 Signed Impressions: Service Date/Time: Wednesday, May 17, 2017 11:11 - CONCLUSION: Increasing subsegmental consolidative infiltrates medial lower lungs bilaterally. José Luis Westfall MD Neck CT 05/16/17 0000 Signed Impressions: Service Date/Time: Tuesday, May 16, 2017 23:43 - CONCLUSION: There is asymmetric soft tissue fullness in the right vallecula. Consider direct visualization for better evaluation of this area. However, a discrete measurable mass is not appreciated. There is a suspicion for a mass given the 2 enlarged adjacent right level II lymph nodes. Gen Chopra MD Abdomen/Pelvis CT 05/15/17 0000 Signed Impressions: Service Date/Time: Monday, May 15, 2017 23:10 - CONCLUSION: 1. Heterogeneous high density material filling the stomach some of which could represent blood products. 2. There are features characteristic of cirrhosis and findings indicative of portal hypertension including collateral blood vessels and splenomegaly. The suspected blood products in the stomach could be related to portal hypertension. Gen Chopra MD PE at Discharge GENERAL: AOX3, NAD. SKIN: Warm and dry. HEAD: Normocephalic. EYES: No scleral icterus. No injection or drainage. NECK: Supple, trachea midline. No JVD or lymphadenopathy. CARDIOVASCULAR: Regular rate and rhythm without murmurs, gallops, or rubs. RESPIRATORY: Breath sounds equal bilaterally. No accessory muscle use. GASTROINTESTINAL: Abdomen soft, non-tender, nondistended. MUSCULOSKELETAL: No cyanosis, or edema. BACK: Nontender without obvious deformity. No CVA tenderness. Pt update on day of discharge Patient is currently doing well. No acute concerns. Tolerating food well. No further bleeding. Hospital Course Mr. Deluca is a 62 year old male with a history of liver cirrhosis, esophageal varices who was admitted to the hospital due to hematemesis. He underwent EGD status post banding. There was a right sided oropharynx mass discovered during intubation. ENT was consulted for oropharynx mass. - Acute upper GI bleed - Esophageal varices - Liver cirrhosis - Patient is currently on ceftriaxone 2 g every 24 hours, octreotide 500 g IV every 10 hours - Continue Protonix 40 mg every 12 hours - Will continue Cipro 500mg BID X 3 days to complete a course of abx for 7 days. - Right hypopharynx mass - ENT evaluated patient on 05/17/2017. Recommended outpatient follow-up for future biopsy. - If patient remains in the hospital, possible biopsy in the or early next week. - Hypertension - Patient takes losartan 100 mg at home. Currently without blood pressure medications, his blood pressure is controlled. - We'll continue losartan 25 mg daily. - Gout - continue home medication allopurinol 100 mg by mouth daily Full code. SCDs. Pt Condition on Discharge: Good Discharge Disposition: Discharge Home Discharge Time: > 30 minutes Discharge Instructions DIET: Follow Instructions for: Heart Healthy Diet Activities you can perform: Regular-No Restrictions Follow up Referrals: Appointment for Follow Up Appointment for Follow Up Ear Nose Throat - 1 Week with Mansoor Mayes MD Gastroenterology - 2 Weeks with Yamileth Couch MD PCP Follow-up - 1 Week PCP Follow-up New Medications: Ciprofloxacin (Ciprofloxacin) 500 Mg Tab 500 MG PO BID for Infection, #6 TAB 0 Refills Losartan (Cozaar) 25 Mg Tab 25 MG PO DAILY for Blood Pressure Management, #30 TAB 11 Refills Pantoprazole (Pantoprazole) 40 Mg Tab 40 MG PO Q12H for Reflux, #60 TAB 11 Refills Changed Medications: Propranolol (Propranolol) 20 Mg Tab 20 MG PO Q12HR for Varices, #180 TAB 3 Refills (Changed from: 60; Refills: 0) Hold if systolic BP < 100 or Heart rate < 60 Continued Medications: Allopurinol (Allopurinol) 100 Mg Tab 100 MG PO DAILY for Gout, #30 TAB 0 Refills Ferrous Sulfate (Ferrous Sulfate) 325 Mg (65 Mg Iron) Tablet 325 MG PO BIDPC for Nutritional Supplement, #60 TAB 0 Refills Discontinued Medications: Losartan-Hydrochlorothiazide (Losartan-Hydrochlorothiazide) 100-12.5 Mg Tab 1 TAB PO DAILY for Blood Pressure Management, #30 TAB 0 Refills Pantoprazole (Protonix) 40 Mg Tab 40 MG PO DAILY for Reflux, #30 TAB 0 Refills Tavo Finch DO May 19, 2017 12:15
[2017-05-19 19:54] LABS: CERULOPLASMIN 22 mg/dL (18-36)
[2017-05-21 03:50] LABS: ENDOMYSIAL AB SCREEN ND (NEGATIVE); ENDOMYSIAL AB TITER ND (<1:5)
[2017-05-21 23:54] LABS: MITOCHONDRIAL ABS LESS THAN 20.0 U (<=20.0)
[2017-05-24 11:59] LABS: ALPHA-1-ANTITRYPSIN 168 mg/dL (100 - 190); HEREDITARY HEMOCHROM SPECIMEN WB Whole Blood
--- NOTE | 2017-05-25 08:09 | PQ ---
Physician Query Response Document PATIENT: GABRIELA CAMILO : 1955 ADMIT DATE: 05/15/2017 10:25 PM DISCH DATE: 05/19/2017 1:44 PM RESPONDING PROVIDER #: ryder QUERY TEXT: Anemia Type Anemia is documented in the Medical Record. Please specify the cause (includes suspected or probable cause) Such as: -- Due to acute blood loss -- Due to chronic blood loss -- Due to iron deficiency -- Due to postoperative blood loss -- Due to chronic disease -- Other, please specify The patient's Clinical Indicators include: Admission Hgb 12.1 Hct 36.2--> Hgb 10.7 Hct 30.4. Per H Query created by: Loreta Saleem on 05/19/2017 11:11 AM RESPONSE TEXT: Anemia due to acute GI blood loss (Esophageal variceal bleeding). Electronically signed by: Tim Finch DO 05/25/2017 8:05 AM
== END 2017-05-19 13:44 | disposition home or self-care (01) | DRG 369 ==
LOC: PHED 20:17 → PHEDA 22:25 → HIME 23:55 → N05A 05-18 09:51
PROVIDERS: ADMIT Hospitalist; ATTEND Hospitalist
PROC: 06L38CZ Occlusion of Esophageal Vein with Extraluminal Device, Via Natural or Artificial Opening Endoscopic (ICD-10-PCS; principal; 2017-05-16 08:50)
DX: I85.01 Esophageal varices with bleeding (principal); K76.6 Portal hypertension; K74.60 Unspecified cirrhosis of liver; D62 Acute posthemorrhagic anemia; I10 Essential (primary) hypertension; M19.90 Unspecified osteoarthritis, unspecified site; M10.9 Gout, unspecified; T88.4XXA Failed or difficult intubation, initial encounter; R16.1 Splenomegaly, not elsewhere classified; J39.2 Other diseases of pharynx; K22.70 Barrett's esophagus without dysplasia; K59.00 Constipation, unspecified; K21.9 Gastro-esophageal reflux disease without esophagitis; R73.9 Hyperglycemia, unspecified
CPT/HCPCS: 36600; 70491; 71045; 74177; 80048; 80053; 80074; 81256; 82103; 82105; 82390; 82728; 82784; 82805; 83516; 83520; 83540; 83550; 83605; 83735; 84100; 85014; 85018; 85025; 85027; 85610; 85730; 86038; 86255; 86850; 86900; 86901; 87641; 94002; 94003; 94150; 96365; 96368; 96375; C9113; J0330; J0696; J1100; J1940; J2250; J2354; J2370; J2405; J7030; J7040; Q9967

== ENCOUNTER 2017-05-29 14:31 | Inpatient (IN) | payer OTHER ==
[~2017-05-29] VITALS: Ht 177.8 cm; Wt 102.0 kg
[~2017-05-29 14:31] MED LIST changes: -ADVICAP; -ALLO100 PO; +ALLO100T PO; +CIPR500T2 PO; +COZA25TA PO; -FERR324T4 PO; +FERR325T18 PO; -HYDR50TA5 PO; -HYZA100T4 PO; -LOSA25; +PANT40TA3 PO; -PROP20 PO; +PROP20TA3 PO; -PROT40TA PO; -blood pressure med
[2017-05-29 14:38] VITALS: BP 163/87; PULSE 68; RESP 16; TEMP 98; O2SAT 99
[2017-05-29] MEDS ORDERED: LOSA100T2 PO (15:00)
--- NOTE | 2017-05-29 16:08 | PD ---
HPI Chief Complaint: GI Complaint Time Seen by Provider: 16:06 Travel History International Travel<30 days: No Contact w/Intl Traveler<30days: No Traveled to known affect area: No History of Present Illness HPI 62-year-old male came to the emergency room with history of rectal bleed 2 hours ago. Patient says that he went to the bathroom and moved his bowels and when he looked at the toilet was full of blood. He did not feel any pain. He did not feel any different today. There was no associated lightheadedness or dizziness. Patient says that he does have history of GI bleed and in fact about 2 weeks ago he was admitted for upper GI bleed. Endoscopy revealed esophageal varices that needed to be banded. Patient used to drink but quit drinking about 2-3 weeks ago. He says he has been doing really good and taking the medications that he has been prescribed. Is not sure what led to this. He did not have a colonoscopy last time when he was admitted. No history of any abdominal pain. No history of vomiting this time. Patient has not drank any alcohol in past 2 weeks. Patient says that he called his GI specialist Dr. Couch and his nurse asked him to come to the emergency room. [facility] Past Medical History Narrative Medical List of his past medical, surgical, social and family history is reviewed from the nursing note. Arthritis: Yes Cancer: No Cardiovascular Problems: Yes Diminished Hearing: No Endocrine: No Gastrointestinal Disorders: Yes (Jiang's Esophagus, HX OF GI BLEED, ESOPHAGEAL VARICES, GERD) GERD: Yes Gout: Yes Genitourinary: Yes (Jiang's Esophagus) Hypertension: Yes Immune Disorder: No Musculoskeletal: Yes Neurologic: No Psychiatric: No Reproductive: No Respiratory: Yes (SLEEP APNEA) Past Surgical History Oral Surgery: Yes (TONSILECTOMY) Tonsillectomy: Yes Other Surgery: Yes (EGD) Social History Alcohol Use: Yes (BEERS WEEKLY. "a couple beers a week" ) Tobacco Use: No Substance Use: No Allergies-Medications (Allergen,Severity, Reaction): Coded Allergies: No Known Allergies (Verified Allergy, Unknown, 05/29/17) Comments No known drug allergies. Reported Meds & Prescriptions Reported Meds & Active Scripts Active Pantoprazole (Pantoprazole Sodium) 40 Mg Tab 40 Mg PO Q12H Reported Losartan-Hydrochlorothiazide 100-25 Mg Tab 1 Tab PO DAILY Ferrous Sulfate 325 Mg (65 Mg Iron) Tablet 325 Mg PO BIDPC Allopurinol 100 Mg Tab 100 Mg PO DAILY Narrative Medication List of his home medications reviewed from the nursing note. Review of Systems Except as stated in HPI: all other systems reviewed are Neg Gastrointestinal: Positive: Hematochezia Physical Exam Narrative GENERAL: Awake, alert, no obvious distress SKIN: Focused skin assessment warm/dry. HEAD: Atraumatic. Normocephalic. EYES: Pupils equal and round. No scleral icterus. No injection or drainage. ENT: No nasal bleeding or discharge. Mucous membranes pink and moist. NECK: Trachea midline. No JVD. CARDIOVASCULAR: Regular rate and rhythm. No murmur appreciated. RESPIRATORY: No accessory muscle use. Clear to auscultation. Breath sounds equal bilaterally. GASTROINTESTINAL: Abdomen soft, non-tender, nondistended. Hepatic and splenic margins not palpable. MUSCULOSKELETAL: No obvious deformities. No clubbing. No cyanosis. No edema. NEUROLOGICAL: Awake and alert. No obvious cranial nerve deficits. Motor grossly within normal limits. Normal speech. PSYCHIATRIC: Appropriate mood and affect; insight and judgment normal. Data Data Last Documented VS Orders Orders Complete Blood Count With Diff (05/29/17 16:18) Comprehensive Metabolic Panel (05/29/17 16:18) Prothrombin Time / Inr (Pt) (05/29/17 16:18) Type And Screen (05/29/17 16:18) Ecg Monitoring (05/29/17 16:18) Iv Access Insert/Monitor (05/29/17 16:18) Oximetry (05/29/17 16:18) Sodium Chlor 0.9% 1000 Ml Inj (Ns 1000 M (05/29/17 16:18) Sodium Chloride 0.9% Flush (Ns Flush) (05/29/17 16:30) Admit Order (Ed Use Only) (05/29/17 17:13) Labs Laboratory Tests Test 05/29/17 16:30 White Blood Count 9.8 TH/MM3 Red Blood Count 3.54 MIL/MM3 Hemoglobin 10.9 GM/DL Hematocrit 33.5 % Mean Corpuscular Volume 94.8 FL Mean Corpuscular Hemoglobin 30.8 PG Mean Corpuscular Hemoglobin Concent 32.5 % Red Cell Distribution Width 15.7 % Platelet Count 180 TH/MM3 Mean Platelet Volume 6.6 FL Neutrophils (%) (Auto) 82.6 % Lymphocytes (%) (Auto) 9.5 % Monocytes (%) (Auto) 5.6 % Eosinophils (%) (Auto) 1.9 % Basophils (%) (Auto) 0.4 % Neutrophils # (Auto) 8.2 TH/MM3 Lymphocytes # (Auto) 0.9 TH/MM3 Monocytes # (Auto) 0.5 TH/MM3 Eosinophils # (Auto) 0.2 TH/MM3 Basophils # (Auto) 0.0 TH/MM3 CBC Comment DIFF FINAL Differential Comment Prothrombin Time 11.0 SEC Prothromb Time International Ratio 1.1 RATIO Blood Urea Nitrogen 12 MG/DL Creatinine 0.95 MG/DL Random Glucose 123 MG/DL Total Protein 7.3 GM/DL Albumin 3.5 GM/DL Calcium Level 8.5 MG/DL Alkaline Phosphatase 88 U/L Aspartate Amino Transf (AST/SGOT) 26 U/L Alanine Aminotransferase (ALT/SGPT) 29 U/L Total Bilirubin 0.7 MG/DL Sodium Level 138 MEQ/L Potassium Level 4.1 MEQ/L Chloride Level 106 MEQ/L Carbon Dioxide Level 24.5 MEQ/L Anion Gap 8 MEQ/L Estimat Glomerular Filtration Rate 81 ML/MIN MDM Medical Decision Making Medical Screen Exam Complete: Yes Emergency Medical Condition: Yes Medical Record Reviewed: Yes Differential Diagnosis upper GI bleed, lower GI bleed Narrative Course 4:42 PM waiting for the blood test result. Patient is getting a liter bolus. Patient most probably will need to be admitted. He did not have a colonoscopy done last time and with the gross blood present during the rectal exam would prefer to admit him so that he can be seen by GI. 5:08 PM patient is slightly anemic but does not require blood transfusion at this point. Awaiting for the admitting physician to call back. Procedures EKG Prior to Arrival: No HemaPrompt Point of Care Internal Pos. & Neg. Controls: Passed Fecal Specimen Occult Blood: Positive Diagnosis Primary Impression: Hematochezia Admitting Information Admitting Physician Requests: Admit Scripts Citalopram (Celexa) 20 Mg Tab 20 MG PO DAILY for Depression Control for 30 Days, #30 TAB Prov: Michaela Adkins 06/01/17 Nadolol (Corgard) 20 Mg Tab 40 MG PO DAILY for Blood Pressure Management for 30 Days, #60 TAB Prov: Michaela Adkins 06/01/17 Levofloxacin (Levaquin) 500 Mg Tablet 500 MG PO DAILY for Infection for 7 Days, #7 TAB Prov: Michaela Adkins 06/01/17 James Beltrán MD May 29, 2017 16:08
[2017-05-29] MEDS ORDERED: SODIUM CHLOR 0.9% 1000 ML INJ 1,000 ML IV SCH (16:18)
[2017-05-29 16:40] LABS: AUTOMATED NEUTROPHIL # 8.2 TH/MM3 (1.8-7.7); BASOPHIL % 0.4 % (0.0-2.0); EOSINOPHIL # 0.2 TH/MM3 (0-0.4); EOSINOPHIL % 1.9 % (0.0-4.0); HEMATOCRIT 33.5 % (39.0-51.0); HEMOGLOBIN 10.9 GM/DL (13.0-17.0); LYMPH % 9.5 % (9.0-44.0); LYMPHOCYTE # 0.9 TH/MM3 (1.0-4.8); MEAN CELL VOLUME 94.8 FL (80.0-100.0); MEAN CORPUSCULAR HEMOGLOBIN 30.8 PG (27.0-34.0); MEAN CORPUSCULAR HGB CONC 32.5 % (32.0-36.0); MEAN PLATELET VOLUME 6.6 FL (7.0-11.0); MONO % 5.6 % (0.0-8.0); MONOCYTE # 0.5 TH/MM3 (0-0.9); NEUT % 82.6 % (16.0-70.0); PLATELET COUNT 180 TH/MM3 (150-450); RED BLOOD COUNT 3.54 MIL/MM3 (4.50-5.90); RED CELL DISTRIBUTION WIDTH 15.7 % (11.6-17.2); WHITE BLOOD COUNT 9.8 TH/MM3 (4.0-11.0)
[2017-05-29 16:44] VITALS: O2SAT 99
[2017-05-29 16:45] VITALS: BP 156/84; PULSE 64; RESP 16; O2SAT 100
[2017-05-29 16:56] LABS: CHLORIDE 106 MEQ/L (98-107); INTERNATIONAL NORMALIZED RATIO 1.1 RATIO; SODIUM (NA) 138 MEQ/L (136-145)
[2017-05-29 16:59] LABS: ALBUMIN 3.5 GM/DL (3.4-5.0); BICARBONATE 24.5 MEQ/L (21.0-32.0); CALCIUM 8.5 MG/DL (8.5-10.1); GLUCOSE,RANDOM 123 MG/DL (74-106)
[2017-05-29 17:00] LABS: BLOOD UREA NITROGEN 12 MG/DL (7-18)
[2017-05-29 17:02] LABS: ALT (GPT) 29 U/L (12-78); AST (GOT) 26 U/L (15-37)
[2017-05-29 17:03] LABS: CREATININE 0.95 MG/DL (0.60-1.30); GLOMERULAR FILTRATION RATE 81 ML/MIN (>89)
[2017-05-29 17:04] LABS: TOTAL BILIRUBIN ADULT 0.7 MG/DL (0.2-1.0); TOTAL PROTEIN 7.3 GM/DL (6.4-8.2)
[2017-05-29 17:05] LABS: ALKALINE PHOSPHATASE 88 U/L (45-117)
[2017-05-29] MEDS ORDERED: LACTULOSE SYRUP 20 GM/30 ML CUP PO PRN (17:30)
[2017-05-29] MEDS ORDERED: MAGNESIUM HYDROXIDE SUSP 30 ML CUP PO PRN (17:30)
[2017-05-29] MEDS ORDERED: BISACODYL 10 MG SUPP RECTAL PRN (17:30)
[2017-05-29] MEDS ORDERED: NALOXONE HCL 0.4 MG/ML AMP IV PUSH PRN (17:30)
[2017-05-29] MEDS ORDERED: ACETAMINOPHEN 325 MG TAB PO PRN (17:30)
[2017-05-29] MEDS ORDERED: SENNOSIDES 8.6 MG TAB PO PRN (17:30)
[2017-05-29 19:14] VITALS: BP 125/63; PULSE 80; RESP 18; TEMP 98.1; O2SAT 97
[2017-05-29] MEDS: ONDANSETRON HCL 4 MG/2 ML VIAL IVP PRN (19:18)
[2017-05-29] MEDS: SODIUM CHLORIDE 0.9% FLUSH 10 ML FLUSH IVF PRN ×2 (19:18→21:19)
[2017-05-29 20:00] VITALS: BP 132/72; PULSE 89; RESP 18; TEMP 97.6; O2SAT 99
[2017-05-29 21:00] VITALS: PULSE 82
[2017-05-29] MEDS: PANTOPRAZOLE SOD 40 MG DELAYED RELEASE TAB PO SCH (21:19)
[2017-05-29] MEDS: PROPRANOLOL HCL 20 MG TAB PO SCH (21:19)
[2017-05-29] MEDS: DOCUSATE SODIUM 50 MG/SENNA 8.6 MG TAB PO SCH (21:19)
[2017-05-30] VITALS: BP 128/75; PULSE 85; RESP 18; RESP 19; TEMP 97.3; O2SAT 98
[2017-05-30] MEDS: ONDANSETRON HCL 4 MG/2 ML VIAL IVP PRN ×2 (02:02→11:02)
[2017-05-30] MEDS: SODIUM CHLORIDE 0.9% FLUSH 10 ML FLUSH IVF PRN ×2 (02:03→20:41)
[2017-05-30 04:00] VITALS: BP 98/56; PULSE 76; RESP 18; TEMP 98.1; O2SAT 99
[2017-05-30 06:48] LABS: AUTOMATED NEUTROPHIL # 12.3 TH/MM3 (1.8-7.7); BASOPHIL # 0.1 TH/MM3 (0-0.2); BASOPHIL % 0.6 % (0.0-2.0); EOSINOPHIL # 0.2 TH/MM3 (0-0.4); HEMOGLOBIN 8.6 GM/DL (13.0-17.0); LYMPH % 12.4 % (9.0-44.0); LYMPHOCYTE # 1.9 TH/MM3 (1.0-4.8); MEAN CORPUSCULAR HEMOGLOBIN 31.9 PG (27.0-34.0); MEAN CORPUSCULAR HGB CONC 33.2 % (32.0-36.0); MEAN PLATELET VOLUME 7.4 FL (7.0-11.0); MONO % 6.7 % (0.0-8.0); NEUT % 79.3 % (16.0-70.0); PLATELET COUNT 188 TH/MM3 (150-450); RED CELL DISTRIBUTION WIDTH 15.9 % (11.6-17.2); WHITE BLOOD COUNT 15.5 TH/MM3 (4.0-11.0)
[2017-05-30 06:57] LABS: BICARBONATE 23.5 MEQ/L (21.0-32.0); CALCIUM 8.1 MG/DL (8.5-10.1)
[2017-05-30 07:04] LABS: CREATININE 0.97 MG/DL (0.60-1.30)
[2017-05-30 08:00] VITALS: BP 124/68; PULSE 84; RESP 18; TEMP 98.1; O2SAT 97
[2017-05-30] MEDS: DOCUSATE SODIUM 50 MG/SENNA 8.6 MG TAB PO SCH ×2 (08:07→20:41)
[2017-05-30] MEDS: INFLUENZA VIRUS VACCINE (QUADRIVALENT) 0.5 ML SYR IM ONE ×2 (08:07→10:00)
--- NOTE | 2017-05-30 08:27 | HHI.HP ---
History of Present Illness Primary Care Physician Trey Ruiz, DO Admission Diagnosis hematochezia Diagnoses: History of Present Illness 62 Y/O male Presents to ER with rectal bleed. Had BM and noticed bright red blood in toilet. Recently D/C from [facility] for upper Gi Bleed with esophageal varices banding. Denies any pain recal pain, sob, dizziness or light headedness. Dr Couch is his GI doctor. Review of Systems Gastrointestinal: COMPLAINS OF: Bloody stools, Difficulty Swallowing Musculoskeletal: COMPLAINS OF: Joint pain Past Family Social History Allergies: Coded Allergies: No Known Allergies (Verified Allergy, Unknown, 05/29/17) Past Medical History HTN, Jiang Esophagus, Esophageal varices, GERD, Gout Past Surgical History Tonsillectomy, EGD Reported Medications Active Pantoprazole (Pantoprazole Sodium) 40 Mg Tab 40 Mg PO Q12H Propranolol (Propranolol HCl) 20 Mg Tab 20 Mg PO Q12HR Hold if systolic BP < 100 or Heart rate < 60 Reported Losartan-Hydrochlorothiazide 100-25 Mg Tab 1 Tab PO DAILY Ferrous Sulfate 325 Mg (65 Mg Iron) Tablet 325 Mg PO BIDPC Allopurinol 100 Mg Tab 100 Mg PO DAILY Active Ordered Medications Current Medications Medications (Trade) Dose Ordered Sig/Alcides Route Start Time Stop Time Status Last Admin (NS Flush) 2 ml UNSCH PRN IVF 05/29/17 16:30 05/30/17 02:03 (Tylenol) 650 mg Q4H PRN PO 05/29/17 17:30 05/30/17 02:31 (Zofran Inj) 4 mg Q6H PRN IVP 05/29/17 17:30 05/30/17 02:02 (Narcan Inj) 0.4 mg UNSCH PRN IV PUSH 05/29/17 17:30 (Radha-Colace) 1 tab BID PO 05/29/17 21:00 05/29/17 21:19 (Milk Of Magnesia Liq) 30 ml Q12H PRN PO 05/29/17 17:30 (Senokot) 17.2 mg Q12H PRN PO 05/29/17 17:30 (Dulcolax Supp) 10 mg DAILY PRN RECTAL 05/29/17 17:30 (Lactulose Liq) 30 ml DAILY PRN PO 05/29/17 17:30 (Zyloprim) 100 mg DAILY PO 05/30/17 09:00 (Ferrous Sulfate) 325 mg BIDPC PO 05/30/17 09:00 (Protonix) 40 mg Q12HR PO 05/29/17 21:00 05/29/17 21:19 (Inderal) 20 mg Q12HR PO 05/29/17 21:00 05/29/17 21:19 (Cozaar) 100 mg DAILY PO 05/30/17 09:00 (Hydrodiuril) 25 mg DAILY PO 05/30/17 09:00 (Flu (Quadrivalent) Vaccine Inj) 0.5 ml ONCE ONCE IM 05/30/17 10:00 05/30/17 10:01 (Tylenol) 650 mg Q6H PRN PO 05/30/17 02:30 Social History Denies tobacco Quit drinking 2 weeks ago Physical Exam Vital Signs Vital Signs Date Time Temp Pulse Resp B/P (MAP) Pulse Ox O2 Delivery O2 Flow Rate FiO2 05/30/17 04:00 98.1 76 18 98/56 (70) 99 05/30/17 00:00 97.3 85 18 128/75 (92) 98 05/30/17 00:00 97.3 85 19 128/75 (92) 98 05/29/17 21:00 82 05/29/17 20:07 05/29/17 20:00 97.6 89 18 132/72 (92) 99 05/29/17 19:14 98.1 80 18 125/63 (83) 97 05/29/17 16:45 64 16 156/84 (108) 100 Room Air 05/29/17 16:44 99 05/29/17 16:00 16 05/29/17 14:38 98.0 68 16 163/87 (112) 99 Physical Exam GENERAL: This is a well-nourished, well-developed patient . SKIN: No rashes, ecchymoses or lesions. Cool and dry. HEAD: Atraumatic. Normocephalic. No temporal or scalp tenderness. EYES: Pupils equal round and reactive. Extraocular motions intact. No scleral icterus. No injection or drainage. ENT: Nose without bleeding, purulent drainage or septal hematoma. Throat without erythema, tonsillar hypertrophy or exudate. Uvula midline. Airway patent. NECK: Trachea midline. No JVD or lymphadenopathy. Supple, nontender, no meningeal signs. CARDIOVASCULAR: Regular rate and rhythm without murmurs, gallops, or rubs. RESPIRATORY: Clear to auscultation. Breath sounds equal bilaterally. No wheezes , rales, or rhonchi. GASTROINTESTINAL: Abdomen soft, non-tender, nondistended. No hepato-splenomegaly , or palpable masses. No guarding. MUSCULOSKELETAL: Extremities without clubbing, cyanosis, or edema. No joint tenderness, effusion, or edema noted. No calf tenderness. Negative Homans sign bilaterally. NEUROLOGICAL: Awake and alert. Cranial nerves II through XII intact. Motor and sensory grossly within normal limits. Five out of 5 muscle strength in all muscle groups. Normal speech. Laboratory Laboratory Tests Test 05/29/17 16:30 05/30/17 05:30 White Blood Count 9.8 15.5 Red Blood Count 3.54 2.70 Hemoglobin 10.9 8.6 Hematocrit 33.5 26.0 Mean Corpuscular Volume 94.8 96.0 Mean Corpuscular Hemoglobin 30.8 31.9 Mean Corpuscular Hemoglobin Concent 32.5 33.2 Red Cell Distribution Width 15.7 15.9 Platelet Count 180 188 Mean Platelet Volume 6.6 7.4 Neutrophils (%) (Auto) 82.6 79.3 Lymphocytes (%) (Auto) 9.5 12.4 Monocytes (%) (Auto) 5.6 6.7 Eosinophils (%) (Auto) 1.9 1.0 Basophils (%) (Auto) 0.4 0.6 Neutrophils # (Auto) 8.2 12.3 Lymphocytes # (Auto) 0.9 1.9 Monocytes # (Auto) 0.5 1.0 Eosinophils # (Auto) 0.2 0.2 Basophils # (Auto) 0.0 0.1 CBC Comment DIFF FINAL DIFF FINAL Differential Comment Prothrombin Time 11.0 Prothromb Time International Ratio 1.1 Blood Urea Nitrogen 12 28 Creatinine 0.95 0.97 Random Glucose 123 115 Total Protein 7.3 Albumin 3.5 Calcium Level 8.5 8.1 Alkaline Phosphatase 88 Aspartate Amino Transf (AST/SGOT) 26 Alanine Aminotransferase (ALT/SGPT) 29 Total Bilirubin 0.7 Sodium Level 138 140 Potassium Level 4.1 4.5 Chloride Level 106 109 Carbon Dioxide Level 24.5 23.5 Anion Gap 8 8 Estimat Glomerular Filtration Rate 81 79 Result Diagram: 05/30/1752905/30/17529 Caprini VTE Risk Assessment Caprini VTE Risk Assessment: No/Low Risk (score <= 1) VTE Pharm Contraindication: Active bleeding Caprini Risk Assessment Model Point Value = 1 Point Value = 2 Point Value = 3 Point Value = 5 Age 41-60 Minor surgery BMI > 25 kg/m2 Swollen legs Varicose veins or History of unexplained or recurrent spontaneous Oral contraceptives or hormone replacement Sepsis (< 1 month) Serious lung disease, including pneumonia (< 1 month) Abnormal pulmonary function Acute myocardial infarction Congestive heart failure (< 1 month) History of inflammatory bowel disease Medical patient at bed rest Age 61-74 Arthroscopic surgery Major open surgery (> 45 min) Laparoscopic surgery (> 45 min) Malignancy Confined to bed (> 72 hours) Immobilizing plaster cast Central venous access Age >= 75 History of VTE Family history of VTE Factor V Leiden Prothrombin [id number] Lupus anticoagulant Anticardiolipin antibodies Elevated serum homocysteine Heparin-induced thrombocytopenia Other congenital or acquired thrombophilia Stroke (< 1 month) Elective arthroplasty Hip, pelvis, or leg fracture Acute spinal cord injury (< 1 month) Prophylaxis Regimen Total Risk Factor Score Risk Level Prophylaxis Regimen 0-1 Low Early ambulation 2 Moderate Order ONE of the following: *Sequential Compression Device (SCD) *Heparin 5000 units SQ BID 3-4 Higher Order ONE of the following medications: *Heparin 5000 units SQ TID *Enoxaparin/Lovenox 40 mg SQ daily (WT < 150 kg, CrCl > 30 mL/min) *Enoxaparin/Lovenox 30 mg SQ daily (WT < 150 kg, CrCl > 10-29 mL/min) *Enoxaparin/Lovenox 30 mg SQ BID (WT < 150 kg, CrCl > 30 mL/min) AND/OR *Sequential Compression Device (SCD) 5 or more Highest Order ONE of the following medications: *Heparin 5000 units SQ TID (Preferred with Epidurals) *Enoxaparin/Lovenox 40 mg SQ daily (WT < 150 kg, CrCl > 30 mL/min) *Enoxaparin/Lovenox 30 mg SQ daily (WT < 150 kg, CrCl > 10-29 mL/min) *Enoxaparin/Lovenox 30 mg SQ BID (WT < 150 kg, CrCl > 30 mL/min) AND *Sequential Compression Device (SCD) Assessment and Plan Problem List: (1) Hematochezia ICD Codes: K92.1 - Melena Status: Acute Plan: Gi consulted, monitor CBC q6 transfuse as needed. (2) HTN (hypertension) ICD Codes: I10 - HTN (hypertension) Status: Acute Plan: Controlled, cont home medications (3) Anemia ICD Codes: D64.9 - Anemia Status: Acute Plan: Monitor CBC, Cont Fe supplement. Discharge Planning Home when cleared by GI Problem Qualifiers (1) Anemia: Qualified Codes: D50.0 - Iron deficiency anemia secondary to blood loss ( chronic) Michaela Adkins May 30, 2017 08:27
[2017-05-30] MEDS ORDERED: CITALOPRAM HYDROBROMIDE 20 MG TAB PO ONE (09:00)
[2017-05-30] MEDS: SODIUM CHLOR 0.9% 1000 ML INJ 1,000 ML IV SCH ×2 (09:00→17:00)
[2017-05-30] MEDS ORDERED: NON-FORMULARY DRUG (Losartan-Hydrochlorothiazide 1 TAB) PO SCH (09:00)
[2017-05-30] MEDS: PROPRANOLOL HCL 20 MG TAB PO SCH (09:41)
[2017-05-30] MEDS: HYDROCHLOROTHIAZIDE 25 MG TAB PO SCH (09:41)
[2017-05-30] MEDS: LOSARTAN 50 MG TAB PO SCH (09:41)
[2017-05-30] MEDS: PANTOPRAZOLE SOD 40 MG DELAYED RELEASE TAB PO SCH ×2 (09:43→20:41)
[2017-05-30] MEDS: ALLOPURINOL 100 MG TAB PO SCH (09:43)
[2017-05-30] MEDS: FERROUS SULFATE 325 MG (65 MG ELEMENTAL IRON) TAB PO SCH ×2 (09:43→17:28)
[2017-05-30 09:46] LABS: HEMATOCRIT 24.6 % (39.0-51.0); HEMOGLOBIN 8.1 GM/DL (13.0-17.0); MEAN CELL VOLUME 95.1 FL (80.0-100.0); MEAN CORPUSCULAR HEMOGLOBIN 31.3 PG (27.0-34.0); MEAN CORPUSCULAR HGB CONC 32.9 % (32.0-36.0); MEAN PLATELET VOLUME 7.4 FL (7.0-11.0); PLATELET COUNT 154 TH/MM3 (150-450); RED BLOOD COUNT 2.59 MIL/MM3 (4.50-5.90); WHITE BLOOD COUNT 14.6 TH/MM3 (4.0-11.0)
[2017-05-30 12:00] VITALS: BP 132/66; PULSE 88; RESP 18; TEMP 98; O2SAT 97
[2017-05-30 16:00] VITALS: BP 126/70; PULSE 84; RESP 18; TEMP 98.1; O2SAT 97
--- NOTE | 2017-05-30 18:06 | RADRPT ---
EXAM DATE/TIME: 05/30/2017 16:44 [place] COMPARISON: CT ABDOMEN & PELVIS W CONTRAST, May 15, 2017, 23:10. INDICATIONS : Blood in stool. ORAL CONTRAST: No oral contrast ingested. RADIATION DOSE: 22.09 CTDIvol (mGy) MEDICAL HISTORY : Gastrointestinal bleed. Gastroesophageal reflux disease. Cirrhosis.Barretts esophagus. Ulcer. SURGICAL HISTORY : None. ENCOUNTER: Initial ACUITY: 2 days PAIN SCALE: 0/10 LOCATION: pelvis TECHNIQUE: Volumetric scanning of the abdomen and pelvis was performed. Using automated exposure control and ad justment of the mA and/or kV according to patient size, radiation dose was kept as low as reasonably achievable to obtain optimal diagnostic quality images. DICOM format image data is available electro nically for review and comparison. 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 On today's examination, interval development of some ascites adjacent to the right margin of the live r measuring up to 12 mm in thickness. There is some induration of the upper abdominal mesentery with out focal fluid collection. Some fluid tracks into the gallbladder fossa. No calcified gallstones. No fluid tracks along the paracolic gutter and there is no free fluid in the pelvis. This is enlarg ed, similar to prior. The liver, pancreas, and periaortic region are unremarkable for noncontrast [place]. No dilated loops of small or large bowel. No evidence of hydronephrosis. Stable right andrea al cyst. Bladder contours are smooth. CONCLUSION: 1. Interval development of mild ascites about the right margin of the liver extending into the gallbl adder fossa, but not tracking down the paracolic gutter. 2. No dilated loops of small or large bowel. 3. Otherwise stable appearance when compared to 05/15/17. José Luis Westfall MD on May 30, 2017 at 17:58 Board Certified Radiologist. This report was verified electronically.
[2017-05-30] MEDS ORDERED: OCTREOTIDE INJ 100 MCG/ML VIAL IV ONE (19:45)
--- NOTE | 2017-05-30 19:54 | PD.CONS ---
HPI History of Present Illness This is a 62 year old, known to have cirrhosis, portal hypertension and esophageal varices. He underwent EGD and banding of esophageal varices at [facility] around [address] Couch. He was admitted to the [facility] through the ER with symptoms of weakness and fatigue associated with GI bleeding in the form of hematochezia followed by melena. He denied any hematemesis. He also denies any history of abdominal pain heartburn dysphagia nausea vomiting jaundice ascites edema constipation diarrhea. There is history of anorexia and weight loss in the last few months. [facility] Past Medical History History of hypertension gout Past Surgical History History of appendectomy, EGD with EBV Coded Allergies: No Known Allergies (Verified Allergy, Unknown, 05/29/17) Medications Losartan allopurinol Inderal Family History No history of liver disease, colorectal cancer or polyps in the family Social History He gives history of alcohol abuse in the past. Presently drinks beer 2-3 times a week. Denies any IV drug use Review of Systems Gastrointestinal: COMPLAINS OF: Black stools, Bloody stools, DENIES: Abdominal pain, Constipation, Diarrhea, Nausea, Vomiting, Difficulty Swallowing, Anorexia , Odynophagia, Swelling of Abdomen, Heartburn, Hematemesis GI Exam Vitals I&O Vital Signs Date Time Temp Pulse Resp B/P (MAP) Pulse Ox O2 Delivery O2 Flow Rate FiO2 05/30/17 16:00 98.1 84 18 126/70 (88) 97 05/30/17 12:00 98.0 88 18 132/66 (88) 97 05/30/17 08:00 98.1 84 18 124/68 (86) 97 05/30/17 04:00 98.1 76 18 98/56 (70) 99 05/30/17 00:00 97.3 85 18 128/75 (92) 98 05/30/17 00:00 97.3 85 19 128/75 (92) 98 05/29/17 21:00 82 05/29/17 20:07 05/29/17 20:00 97.6 89 18 132/72 (92) 99 I/O 05/29/17 05/29/17 05/29/17 05/30/17 05/30/17 05/30/17 07:00 15:00 23:00 07:00 15:00 23:00 Intake Total 1000 ml 522 ml Balance 1000 ml 522 ml Intake IV Total 1000 ml 522 ml # Voids 4 # Bowel Movements 1 Imaging CAT scan done during this admission showed splenomegaly and varices. Laboratory Test 05/30/17 05:30 05/30/17 09:00 White Blood Count 15.5 TH/MM3 14.6 TH/MM3 Red Blood Count 2.70 MIL/MM3 2.59 MIL/MM3 Hemoglobin 8.6 GM/DL 8.1 GM/DL Hematocrit 26.0 % 24.6 % Mean Corpuscular Volume 96.0 FL 95.1 FL Mean Corpuscular Hemoglobin 31.9 PG 31.3 PG Mean Corpuscular Hemoglobin Concent 33.2 % 32.9 % Red Cell Distribution Width 15.9 % 16.0 % Platelet Count 188 TH/MM3 154 TH/MM3 Mean Platelet Volume 7.4 FL 7.4 FL Neutrophils (%) (Auto) 79.3 % Lymphocytes (%) (Auto) 12.4 % Monocytes (%) (Auto) 6.7 % Eosinophils (%) (Auto) 1.0 % Basophils (%) (Auto) 0.6 % Neutrophils # (Auto) 12.3 TH/MM3 Lymphocytes # (Auto) 1.9 TH/MM3 Monocytes # (Auto) 1.0 TH/MM3 Eosinophils # (Auto) 0.2 TH/MM3 Basophils # (Auto) 0.1 TH/MM3 CBC Comment DIFF FINAL Differential Comment Blood Urea Nitrogen 28 MG/DL Creatinine 0.97 MG/DL Random Glucose 115 MG/DL Calcium Level 8.1 MG/DL Sodium Level 140 MEQ/L Potassium Level 4.5 MEQ/L Chloride Level 109 MEQ/L Carbon Dioxide Level 23.5 MEQ/L Anion Gap 8 MEQ/L Estimat Glomerular Filtration Rate 79 ML/MIN Physical Examination HEENT: Pupils round and reactive to light; normocephalic; atraumatic; no jaundice. Throat is clear. NECK: Neck is supple, no JVD, no lymphadenopathy. CHEST: Chest is clear to auscultation and percussion. CARDIAC: Regular rate and rhythm with no murmur gallop or rubs. ABDOMEN: Soft, nontender. No guarding or rigidity. Liver enlarged 4 cm below right costal margin smooth nontender Spleen palpable 2 cm below costal margin. Minimal ascites present. Bowel sounds normal. EXTREMITIES: No clubbing, cyanosis, or edema. SKIN: Normal; no rash; no jaundice. MASON TENDER: No focal deficits; alert and oriented times three. Assessment and Plan Assessment: (1) Ascites of liver ICD Codes: R18.8 - Other ascites (2) Liver cirrhosis ICD Codes: K74.60 - Unspecified cirrhosis of liver (3) Hematochezia ICD Codes: K92.1 - Melena Status: Acute (4) Anemia ICD Codes: D64.9 - Anemia Status: Acute (5) Esophageal varices ICD Codes: I85.00 - Esophageal varices Status: Acute (6) UGIB (upper gastrointestinal bleed) ICD Codes: K92.2 - UGIB (upper gastrointestinal bleed) Status: Acute Plan 1. Patient's GI bleeding is likely from portal hypertension. Recommend IV octreotide 2. Stop propranolol 3. Start nadolol 40 mg a day 4. Continue Protonix and lactulose 5. Elevated WBC count suspicious for SBP. Recommend IV Levaquin and blood cultures 6. Monitor hemoglobin and hematocrit levels. If hemoglobin continues to fall would plan to do EGD this hospital admission. Problem Qualifiers (1) Anemia: Qualified Codes: D50.0 - Iron deficiency anemia secondary to blood loss ( chronic) Fito Marino MD May 30, 2017 19:54
[2017-05-30 20:00] VITALS: BP 136/76; PULSE 73; PULSE 75; RESP 18; TEMP 98.7; O2SAT 99
[2017-05-30] MEDS ORDERED: LEVOFLOXACIN 500 MG PREMIX INJ 100 ML IV SCH (20:00)
[2017-05-30 20:13] LABS: HEMATOCRIT 23.9 % (39.0-51.0); HEMOGLOBIN 7.8 GM/DL (13.0-17.0)
[2017-05-30] MEDS: OCTREOTIDE INJ 500 MCG in SODIUM CHLORID 0.9% 500 ML INJ 499.5 ML IV SCH (21:39)
[2017-05-31] VITALS (9 sets, daily range): BP systolic 116–145; BP diastolic 61–84; PULSE 56–97; RESP 14–16; TEMP 96.7–98.7; O2SAT 96–99
[2017-05-31] MEDS: SODIUM CHLOR 0.9% 1000 ML INJ 1,000 ML IV SCH ×3 (01:00→17:00)
[2017-05-31] MEDS: ONDANSETRON HCL 4 MG/2 ML VIAL IVP PRN (02:22)
[2017-05-31] MEDS: SODIUM CHLORIDE 0.9% FLUSH 10 ML FLUSH IVF PRN (02:22)
[2017-05-31] MEDS ORDERED: diphenhydrAMINE HCL 25 MG CAP PO ONE (02:45)
[2017-05-31 07:51] LABS: AUTOMATED NEUTROPHIL # 11.1 TH/MM3 (1.8-7.7); BASOPHIL % 0.2 % (0.0-2.0); EOSINOPHIL % 0.4 % (0.0-4.0); HEMATOCRIT 23.1 % (39.0-51.0); HEMOGLOBIN 8.2 GM/DL (13.0-17.0); LYMPH % 7.6 % (9.0-44.0); LYMPHOCYTE # 0.9 TH/MM3 (1.0-4.8); MEAN CELL VOLUME 94.3 FL (80.0-100.0); MEAN CORPUSCULAR HEMOGLOBIN 33.4 PG (27.0-34.0); MEAN CORPUSCULAR HGB CONC 35.4 % (32.0-36.0); MEAN PLATELET VOLUME 7.1 FL (7.0-11.0); MONO % 4.4 % (0.0-8.0); MONOCYTE # 0.5 TH/MM3 (0-0.9); NEUT % 87.4 % (16.0-70.0); PLATELET COUNT 100 TH/MM3 (150-450); RED BLOOD COUNT 2.45 MIL/MM3 (4.50-5.90); WHITE BLOOD COUNT 12.5 TH/MM3 (4.0-11.0)
[2017-05-31 07:58] LABS: CHLORIDE 110 MEQ/L (98-107); SODIUM (NA) 142 MEQ/L (136-145)
[2017-05-31 08:00] LABS: CALCIUM 7.9 MG/DL (8.5-10.1)
[2017-05-31] MEDS: LOSARTAN 50 MG TAB PO SCH (08:02)
[2017-05-31] MEDS: PANTOPRAZOLE SOD 40 MG DELAYED RELEASE TAB PO SCH ×2 (08:03→20:31)
[2017-05-31] MEDS: ALLOPURINOL 100 MG TAB PO SCH (08:03)
[2017-05-31] MEDS: FERROUS SULFATE 325 MG (65 MG ELEMENTAL IRON) TAB PO SCH ×4 (08:03→18:12)
[2017-05-31] MEDS: CITALOPRAM HYDROBROMIDE 20 MG TAB PO SCH (08:03)
[2017-05-31] MEDS: NADOLOL 20 MG TAB PO SCH (08:03)
[2017-05-31] MEDS: HYDROCHLOROTHIAZIDE 25 MG TAB PO SCH (08:03)
[2017-05-31] MEDS: DOCUSATE SODIUM 50 MG/SENNA 8.6 MG TAB PO SCH ×2 (08:03→20:31)
[2017-05-31 08:12] LABS: ALBUMIN 2.8 GM/DL (3.4-5.0); ALKALINE PHOSPHATASE 43 U/L (45-117); ALT (GPT) 19 U/L (12-78); AST (GOT) 20 U/L (15-37); BICARBONATE 24.1 MEQ/L (21.0-32.0); BLOOD UREA NITROGEN 23 MG/DL (7-18); GLOMERULAR FILTRATION RATE 76 ML/MIN (>89); GLUCOSE,RANDOM 148 MG/DL (74-106); TOTAL BILIRUBIN ADULT 0.9 MG/DL (0.2-1.0); TOTAL PROTEIN 5.8 GM/DL (6.4-8.2)
--- NOTE | 2017-05-31 08:41 | HHI.PR ---
Subjective Remarks Had allergic reaction to blood last night, eyes itching as well as nausea Objective Vital Signs Date Time Temp Pulse Resp B/P (MAP) Pulse Ox O2 Delivery O2 Flow Rate FiO2 05/31/17 04:00 98.1 80 16 145/75 (98) 97 05/31/17 02:20 98.4 97 16 142/84 98 05/31/17 01:00 98.6 89 16 122/73 97 05/31/17 00:42 98.6 92 16 116/61 97 05/31/17 00:00 98.6 92 16 116/61 (79) 97 05/30/17 20:00 73 05/30/17 20:00 98.7 75 18 136/76 (96) 99 05/30/17 16:00 98.1 84 18 126/70 (88) 97 05/30/17 12:00 98.0 88 18 132/66 (88) 97 I/O 05/30/17 05/30/17 05/30/17 05/31/17 05/31/17 05/31/17 07:00 15:00 23:00 07:00 15:00 23:00 Intake Total 622 ml 1764 ml Output Total 750 ml Balance 622 ml 1014 ml Intake Oral 180 ml IV Total 622 ml 1319 ml Packed Cells 235 ml Blood Product IV Normal Saline Flush 30 ml Output Urine Total 750 ml # Voids 4 4 # Bowel Movements 1 1 Result Diagram: 05/31/17 0647 05/31/17 0647 Imaging Last 48 hours Impressions Abdomen/Pelvis CT 05/30/17 0000 Signed Impressions: Service Date/Time: Tuesday, May 30, 2017 16:44 - CONCLUSION: 1. Interval development of mild ascites about the right margin of the liver extending into the gallbladder fossa, but not tracking down the paracolic gutter. 2. No dilated loops of small or large bowel. 3. Otherwise stable appearance when compared to 05/15/17. José Luis Westfall MD Objective Remarks HEENT: Pupils round and reactive to light; normocephalic; atraumatic; no jaundice. Throat is clear. NECK: Neck is supple, no JVD, no lymphadenopathy. CHEST: BS equal, CTA CARDIAC: Regular rate and rhythm with no murmur gallop or rubs. ABDOMEN: BS +, Soft, nontender, No guarding EXTREMITIES: No clubbing, cyanosis, or edema. SKIN: Warm, dry, no rash, DISPATCH OFFICER: alert and oriented times three. Medications and IVs Current Medications Medications (Trade) Dose Ordered Sig/Alcides Route Start Time Stop Time Status Last Admin (NS Flush) 2 ml UNSCH PRN IVF 05/29/17 16:30 05/31/17 02:22 (Tylenol) 650 mg Q4H PRN PO 05/29/17 17:30 05/30/17 02:31 (Zofran Inj) 4 mg Q6H PRN IVP 05/29/17 17:30 05/31/17 02:22 (Narcan Inj) 0.4 mg UNSCH PRN IV PUSH 05/29/17 17:30 (Radha-Colace) 1 tab BID PO 05/29/17 21:00 05/30/17 20:41 (Milk Of Magnesia Liq) 30 ml Q12H PRN PO 05/29/17 17:30 (Senokot) 17.2 mg Q12H PRN PO 05/29/17 17:30 (Dulcolax Supp) 10 mg DAILY PRN RECTAL 05/29/17 17:30 (Lactulose Liq) 30 ml DAILY PRN PO 05/29/17 17:30 (Zyloprim) 100 mg DAILY PO 05/30/17 09:00 05/31/17 08:03 (Ferrous Sulfate) 325 mg BIDPC PO 05/30/17 09:00 05/31/17 08:03 (Protonix) 40 mg Q12HR PO 05/29/17 21:00 05/31/17 08:03 (Cozaar) 100 mg DAILY PO 05/30/17 09:00 05/31/17 08:02 (Hydrodiuril) 25 mg DAILY PO 05/30/17 09:00 05/31/17 08:03 (Tylenol) 650 mg Q6H PRN PO 05/30/17 02:30 Sodium Chloride 1,000 ml @ 125 mls/hr Q8H IV 05/30/17 09:00 05/31/17 03:33 (CeleXA) 20 mg DAILY PO 05/31/17 09:00 05/31/17 08:03 Octreotide Acetate 500 mcg/ Sodium Chloride 500 ml @ 25 mls/hr Q20H IV 05/30/17 20:00 05/30/17 21:39 Levofloxacin/ Dextrose 100 ml @ 100 mls/hr Q24H IV 05/30/17 20:00 05/30/17 20:41 (Corgard) 40 mg DAILY PO 05/31/17 09:00 05/31/17 08:03 Assessment and Plan Problem List: (1) Esophageal varices ICD Codes: I85.00 - Esophageal varices Status: Acute Plan: S/P banding 2 weeks ago, GI following, Started on Octreotide Cont to monitor HH, (2) Hematochezia ICD Codes: K92.1 - Melena Status: Acute Plan: Gi following started on IV Octreotide. Cont monitor HH (3) HTN (hypertension) ICD Codes: I10 - HTN (hypertension) Status: Acute Plan: Controlled, cont home medications (4) Anemia ICD Codes: D64.9 - Anemia Status: Acute Plan: Monitor CBC, Cont Fe supplement TID Was given transfusion stopped r/t reaction patient became nauseated with puritis. HGB this am 8.2. Discharge Planning DC home when cleared by GI Problem Qualifiers (1) Anemia: Qualified Codes: D50.0 - Iron deficiency anemia secondary to blood loss ( chronic) Michaela Adkins May 31, 2017 08:41
[2017-05-31] MEDS: ACETAMINOPHEN 325 MG TAB PO PRN ×2 (13:37→20:30)
[2017-05-31] MEDS: OCTREOTIDE INJ 500 MCG in SODIUM CHLORID 0.9% 500 ML INJ 499.5 ML IV SCH (18:16)
--- NOTE | 2017-05-31 20:04 | HHI.GIFU ---
Subjective Remarks Patient comfortably resting in the bed. Denies any abdominal pain fever chills nausea vomiting hematemesis melena or hematochezia or altered mental status. Hemoglobin level is stable. Objective Vitals I&O Vital Signs Date Time Temp Pulse Resp B/P (MAP) Pulse Ox O2 Delivery O2 Flow Rate FiO2 05/31/17 16:00 98.0 60 14 127/82 (97) 96 05/31/17 12:00 97.0 62 14 123/77 (92) 99 05/31/17 10:01 96.7 82 16 138/82 (100) 98 05/31/17 04:00 98.1 80 16 145/75 (98) 97 05/31/17 02:20 98.4 97 16 142/84 98 05/31/17 01:00 98.6 89 16 122/73 97 05/31/17 00:42 98.6 92 16 116/61 97 05/31/17 00:00 98.6 92 16 116/61 (79) 97 05/30/17 20:00 73 05/30/17 20:00 98.7 75 18 136/76 (96) 99 I/O 05/30/17 05/30/17 05/30/17 05/31/17 05/31/17 05/31/17 07:00 15:00 23:00 07:00 15:00 23:00 Intake Total 622 ml 1764 ml 240 ml Output Total 750 ml Balance 622 ml 1014 ml 240 ml Intake Oral 180 ml 240 ml IV Total 622 ml 1319 ml Packed Cells 235 ml Blood Product IV Normal Saline Flush 30 ml Output Urine Total 750 ml # Voids 4 4 2 # Bowel Movements 1 1 1 Laboratory Laboratory Tests Test 05/31/17 06:47 White Blood Count 12.5 Red Blood Count 2.45 Hemoglobin 8.2 Hematocrit 23.1 Mean Corpuscular Volume 94.3 Mean Corpuscular Hemoglobin 33.4 Mean Corpuscular Hemoglobin Concent 35.4 Red Cell Distribution Width 16.0 Platelet Count 100 Mean Platelet Volume 7.1 Neutrophils (%) (Auto) 87.4 Lymphocytes (%) (Auto) 7.6 Monocytes (%) (Auto) 4.4 Eosinophils (%) (Auto) 0.4 Basophils (%) (Auto) 0.2 Neutrophils # (Auto) 11.1 Lymphocytes # (Auto) 0.9 Monocytes # (Auto) 0.5 Eosinophils # (Auto) 0.0 Basophils # (Auto) 0.0 CBC Comment DIFF FINAL Differential Comment Blood Urea Nitrogen 23 Creatinine 1.00 Random Glucose 148 Total Protein 5.8 Albumin 2.8 Calcium Level 7.9 Alkaline Phosphatase 43 Aspartate Amino Transf (AST/SGOT) 20 Alanine Aminotransferase (ALT/SGPT) 19 Total Bilirubin 0.9 Sodium Level 142 Potassium Level 4.0 Chloride Level 110 Carbon Dioxide Level 24.1 Anion Gap 8 Estimat Glomerular Filtration Rate 76 Physical Exam HEENT: Pupils round and reactive to light; normocephalic; atraumatic; no jaundice. Throat is clear. NECK: Neck is supple, no JVD, no lymphadenopathy. CHEST: Chest is clear to auscultation and percussion. CARDIAC: Regular rate and rhythm with no murmur gallop or rubs. ABDOMEN: Soft, nondistended, nontender; liver and spleen both palpable. Minimal ascites. Bowel sounds are normal. EXTREMITIES: No clubbing, cyanosis, or edema. SKIN: Normal; no rash; no jaundice. CORRECTION OFFICER PENITENTIARY: No focal deficits; alert and oriented times three. Assessment and Plan Assessment: (1) Ascites of liver ICD Codes: R18.8 - Other ascites (2) Liver cirrhosis ICD Codes: K74.60 - Unspecified cirrhosis of liver (3) Hematochezia ICD Codes: K92.1 - Melena Status: Acute (4) Anemia ICD Codes: D64.9 - Anemia Status: Acute (5) Esophageal varices ICD Codes: I85.00 - Esophageal varices Status: Acute (6) UGIB (upper gastrointestinal bleed) ICD Codes: K92.2 - UGIB (upper gastrointestinal bleed) Status: Acute Plan 1. Cirrhosis with portal hypertension associated with a variceal bleeding 2. Post banding bleed likely from PHG 3. Ascites, low likelihood of SBP 4. Reduce octreotide drip to 12.5 mcg an hour 5. Check labs in the a.m. and if stable discharge the patient home with instructions to follow-up in our office in 1 week Problem Qualifiers (1) Anemia: Qualified Codes: D50.0 - Iron deficiency anemia secondary to blood loss ( chronic) Fito Marino MD May 31, 2017 20:04
[2017-05-31] MEDS ORDERED: MELATONIN 5 MG TAB PO PRN (21:00)
[2017-06-01] VITALS: BP 102/54; PULSE 62; RESP 18; TEMP 98.8; O2SAT 95
[2017-06-01] MEDS: SODIUM CHLOR 0.9% 1000 ML INJ 1,000 ML IV SCH ×2 (01:00→09:00)
[2017-06-01 06:47] LABS: AUTOMATED NEUTROPHIL # 5.3 TH/MM3 (1.8-7.7); BASOPHIL % 0.6 % (0.0-2.0); EOSINOPHIL # 0.2 TH/MM3 (0-0.4); EOSINOPHIL % 2.6 % (0.0-4.0); HEMATOCRIT 23.4 % (39.0-51.0); HEMOGLOBIN 7.7 GM/DL (13.0-17.0); LYMPH % 12.4 % (9.0-44.0); LYMPHOCYTE # 0.8 TH/MM3 (1.0-4.8); MEAN CELL VOLUME 95.1 FL (80.0-100.0); MEAN CORPUSCULAR HEMOGLOBIN 31.1 PG (27.0-34.0); MEAN CORPUSCULAR HGB CONC 32.7 % (32.0-36.0); MEAN PLATELET VOLUME 6.8 FL (7.0-11.0); MONOCYTE # 0.5 TH/MM3 (0-0.9); NEUT % 76.4 % (16.0-70.0); PLATELET COUNT 100 TH/MM3 (150-450); RED BLOOD COUNT 2.46 MIL/MM3 (4.50-5.90); RED CELL DISTRIBUTION WIDTH 15.6 % (11.6-17.2); WHITE BLOOD COUNT 6.8 TH/MM3 (4.0-11.0)
[2017-06-01 07:00] LABS: CHLORIDE 106 MEQ/L (98-107); SODIUM (NA) 137 MEQ/L (136-145)
[2017-06-01 07:02] LABS: CALCIUM 7.6 MG/DL (8.5-10.1)
[2017-06-01 07:03] LABS: ALBUMIN 2.9 GM/DL (3.4-5.0); BICARBONATE 25.9 MEQ/L (21.0-32.0); BLOOD UREA NITROGEN 17 MG/DL (7-18); GLUCOSE,RANDOM 130 MG/DL (74-106)
[2017-06-01 07:06] LABS: ALT (GPT) 19 U/L (12-78); AST (GOT) 22 U/L (15-37); GLOMERULAR FILTRATION RATE 68 ML/MIN (>89)
[2017-06-01 07:07] LABS: TOTAL BILIRUBIN ADULT 0.8 MG/DL (0.2-1.0)
[2017-06-01 07:08] LABS: TOTAL PROTEIN 5.7 GM/DL (6.4-8.2)
[2017-06-01 07:09] LABS: ALKALINE PHOSPHATASE 44 U/L (45-117)
[2017-06-01 08:00] VITALS: BP 131/80; PULSE 57; PULSE 58; RESP 16; TEMP 98.2; O2SAT 96
[2017-06-01] MEDS ORDERED: LEVOFLOXACIN 500 MG TAB PO SCH (09:00)
[2017-06-01] MEDS: DOCUSATE SODIUM 50 MG/SENNA 8.6 MG TAB PO SCH (09:00)
[2017-06-01 09:30] VITALS: BP_SYST 133; BP_SYST 139; BP_DIAS 75; BP_DIAS 79; BP_DIAS 89; PULSE 62; O2SAT 97
[2017-06-01] MEDS ORDERED: NADO1TAB16 PO (09:44)
[2017-06-01] MEDS ORDERED: LEVA500T33 PO (09:44)
[2017-06-01] MEDS ORDERED: CELE20TA PO (09:44)
[2017-06-01] MEDS: LOSARTAN 50 MG TAB PO SCH (09:48)
[2017-06-01] MEDS: CITALOPRAM HYDROBROMIDE 20 MG TAB PO SCH (09:49)
[2017-06-01] MEDS: FERROUS SULFATE 325 MG (65 MG ELEMENTAL IRON) TAB PO SCH (09:49)
[2017-06-01] MEDS: HYDROCHLOROTHIAZIDE 25 MG TAB PO SCH (09:49)
[2017-06-01] MEDS: NADOLOL 20 MG TAB PO SCH (09:49)
[2017-06-01] MEDS: PANTOPRAZOLE SOD 40 MG DELAYED RELEASE TAB PO SCH (09:49)
[2017-06-01] MEDS: ALLOPURINOL 100 MG TAB PO SCH (09:49)
[2017-06-01] MEDS: ACETAMINOPHEN 325 MG TAB PO PRN (09:52)
--- NOTE | 2017-06-01 09:56 | HHI.DS ---
Discharge Summary Admission Date May 29, 2017 at 17:14 Admitting Diagnosis hematochezia Brief History 62 Y/O male Presents to ER with rectal bleed. Had BM and noticed bright red blood in toilet. Recently D/C from [facility] for upper Gi Bleed with esophageal varices banding. Denies any pain recal pain, sob, dizziness or light headedness. Dr Couch is his GI doctor. CBC/BMP: 06/01/17 0615 06/01/17 0615 Significant Findings Laboratory Tests Test 05/29/17 16:30 05/30/17 05:30 05/30/17 09:00 05/30/17 17:45 Red Blood Count 3.54 MIL/MM3 (4.50-5.90) 2.70 MIL/MM3 (4.50-5.90) 2.59 MIL/MM3 (4.50-5.90) Hemoglobin 10.9 GM/DL (13.0-17.0) 8.6 GM/DL (13.0-17.0) 8.1 GM/DL (13.0-17.0) 7.8 GM/DL (13.0-17.0) Hematocrit 33.5 % (39.0-51.0) 26.0 % (39.0-51.0) 24.6 % (39.0-51.0) 23.9 % (39.0-51.0) Mean Platelet Volume 6.6 FL (7.0-11.0) Neutrophils (%) (Auto) 82.6 % (16.0-70.0) 79.3 % (16.0-70.0) Neutrophils # (Auto) 8.2 TH/MM3 (1.8-7.7) 12.3 TH/MM3 (1.8-7.7) Lymphocytes # (Auto) 0.9 TH/MM3 (1.0-4.8) Random Glucose 123 MG/DL (74-106) 115 MG/DL (74-106) Estimat Glomerular Filtration Rate 81 ML/MIN (>89) 79 ML/MIN (>89) White Blood Count 15.5 TH/MM3 (4.0-11.0) 14.6 TH/MM3 (4.0-11.0) Monocytes # (Auto) 1.0 TH/MM3 (0-0.9) Blood Urea Nitrogen 28 MG/DL (7-18) Calcium Level 8.1 MG/DL (8.5-10.1) Chloride Level 109 MEQ/L (98-107) Test 05/31/17 06:47 06/01/17 06:15 White Blood Count 12.5 TH/MM3 (4.0-11.0) Red Blood Count 2.45 MIL/MM3 (4.50-5.90) 2.46 MIL/MM3 (4.50-5.90) Hemoglobin 8.2 GM/DL (13.0-17.0) 7.7 GM/DL (13.0-17.0) Hematocrit 23.1 % (39.0-51.0) 23.4 % (39.0-51.0) Platelet Count 100 TH/MM3 (150-450) 100 TH/MM3 (150-450) Neutrophils (%) (Auto) 87.4 % (16.0-70.0) 76.4 % (16.0-70.0) Lymphocytes (%) (Auto) 7.6 % (9.0-44.0) Neutrophils # (Auto) 11.1 TH/MM3 (1.8-7.7) Lymphocytes # (Auto) 0.9 TH/MM3 (1.0-4.8) 0.8 TH/MM3 (1.0-4.8) Blood Urea Nitrogen 23 MG/DL (7-18) Random Glucose 148 MG/DL (74-106) 130 MG/DL (74-106) Total Protein 5.8 GM/DL (6.4-8.2) 5.7 GM/DL (6.4-8.2) Albumin 2.8 GM/DL (3.4-5.0) 2.9 GM/DL (3.4-5.0) Calcium Level 7.9 MG/DL (8.5-10.1) 7.6 MG/DL (8.5-10.1) Alkaline Phosphatase 43 U/L (45-117) 44 U/L (45-117) Chloride Level 110 MEQ/L (98-107) Estimat Glomerular Filtration Rate 76 ML/MIN (>89) 68 ML/MIN (>89) Mean Platelet Volume 6.8 FL (7.0-11.0) Platelet Estimate LOW (NORMAL) Ammonia 55 MCMOL/L (11-32) PE at Discharge HEENT: Pupils round and reactive to light; normocephalic; atraumatic; no jaundice. Throat is clear. NECK: Neck is supple, no JVD, no lymphadenopathy. CHEST: BS equal, CTA CARDIAC: Regular rate and rhythm with no murmur gallop or rubs. ABDOMEN: BS +, Soft, nontender, No guarding EXTREMITIES: No clubbing, cyanosis, or edema. 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 Hospital Course Admitted for Hematochezia, HH monitor closely GI consulted He had recent HX of Varices w/ banding. He was started on Octreotide by GI IV. 2 units of PRBC ordered for HGB of 7.8, given on 05/31/17, however patient develop reaction with puritis.Transfusion stopped and he responded to Benadryl. HGB on day of DC 7.7, asymptomatic, orthostatic BP completed, no dizziness noted. He will have HH checked on Monday and follow up with pcp on Monday. Pt Condition on Discharge: Stable Discharge Disposition: Discharge Home Discharge Instructions DIET: Follow Instructions for: As Tolerated, No Restrictions Activities you can perform: Regular-No Restrictions Michaela Adkins Jun 01, 2017 09:56
== END 2017-06-01 11:30 | disposition home or self-care (01) | DRG 378 ==
LOC: PHED 14:31 → PHEDA 17:14 → PH3B 20:11
PROVIDERS: ADMIT Hospitalist; ATTEND Hospitalist
PROC: 30233N1 Transfusion of Nonautologous Red Blood Cells into Peripheral Vein, Percutaneous Approach (ICD-10-PCS; principal; 2017-05-31)
DX: K92.1 Melena (principal); K76.6 Portal hypertension; K74.60 Unspecified cirrhosis of liver; I10 Essential (primary) hypertension; D50.0 Iron deficiency anemia secondary to blood loss (chronic); I85.10 Secondary esophageal varices without bleeding; K22.70 Barrett's esophagus without dysplasia; M10.9 Gout, unspecified; G47.30 Sleep apnea, unspecified; F32.9 Major depressive disorder, single episode, unspecified; D72.829 Elevated white blood cell count, unspecified; H57.8 Other specified disorders of eye and adnexa; R11.0 Nausea; T80.89XA Other complications following infusion, transfusion and therapeutic injection, initial encounter; L29.9 Pruritus, unspecified; Z79.899 Other long term (current) drug therapy
CPT/HCPCS: 36430; 74176; 80048; 80053; 82140; 85014; 85018; 85025; 85027; 85610; 86078; 86850; 86880; 86900; 86901; 86920; 96360; J1956; J2354; J2405; J7030; J7040; P9016

== ENCOUNTER → 2017-08-01 | Day surgery (SDC) | payer OTHER ==
[~2017-08-01] VITALS: Ht 175.3 cm; Wt 98.0 kg
[~2017-08-01] MED LIST changes: +AMPICILLIN/SULBAC 3 GM/NS 100 ML IV PRN; +CELE20TA PO; +CHLORHEXIDINE GLUCONATE 2 % 1 PACK (2 CLOTHS) TOPICAL PRN; -CIPR500T2 PO; -COZA25TA PO; +LACTATED RINGER'S 1000 ML IV PRN; +LEVA500T33 PO; +LIDOCAINE 1%/EPINEPHrine 1:100,000 SOLN 20 ML VIAL ONE; +LOSA100T2 PO; +METOPROLOL TARTRATE 25 MG TAB PO PRN; +MIDAZOLAM HCL 2 MG/2 ML VIAL ONE; +MUPIROCIN 2% OINT 22 GM TUBE ONE; +NADO1TAB16 PO; +POVIDONE IODINE 5% (ANTISEPSIS KIT) 4 APPLICATIONS EACH NARE PRN; +SODIUM CHLORID 0.9% 500 ML IV PRN; +VITA10002 PO
[2017-08-01 10:39] VITALS: PULSE 46
[2017-08-01 11:00] VITALS: TEMP 97.6
[2017-08-01 11:50] VITALS: BP 138/74; PULSE 48; RESP 14; O2SAT 99
--- NOTE | 2017-08-01 12:57 | MP ---
cc: Mansoor Mayes MD DATE OF OPERATION: 08/01/2017 DATE OF PROCEDURE: 08/01/2017 SURGEON: Mansoor Mayes MD PREOPERATIVE DIAGNOSES: Mass, right tongue base. POSTOPERATIVE DIAGNOSIS: Mass, right tongue base. PROCEDURE PERFORMED: Biopsy of right tongue base via direct laryngoscopy. INDICATIONS FOR PROCEDURE: Documented in the history and physical. DESCRIPTION OF PROCEDURE: The patient was taken to OR #2 and placed in the supine position. Following induction of general anesthesia by intravenous route, a shoulder roll and a Terry head drape were put in place. A dental guard was placed and using an anterior commissure scope, hypopharynx and larynx were brought into view. Lesion of the right tongue base was identified and biopsied at its central point. This appeared to be a papillomatous type soft tissue mass. No other lesions were observed in the hypopharynx or larynx. The scope was then removed and the procedure was terminated. The patient was reversed from anesthesia and taken to recovery in good condition. There were no complications. Blood loss was 10 mL. Mansoor Mayes MD [facility] , 12:46 PM , 12:56 PM
== END | disposition home or self-care (01) ==
LOC: PHSDC 06:59
PROVIDERS: ATTEND Otolaryngology
DX: D00.07 Carcinoma in situ of tongue (principal); I10 Essential (primary) hypertension
CPT/HCPCS: 00320; 31535; 88305; J0295; J2250; J3010; J7120

== ENCOUNTER 2017-09-08 06:12 | Day surgery (SDC) | payer OTHER ==
[~2017-09-08] VITALS: Ht 177.8 cm; Wt 100.5 kg
[~2017-09-08 06:12] MED LIST changes: -AMPICILLIN/SULBAC 3 GM/NS 100 ML IV PRN; -CELE20TA PO; -CHLORHEXIDINE GLUCONATE 2 % 1 PACK (2 CLOTHS) TOPICAL PRN; -LACTATED RINGER'S 1000 ML IV PRN; -LEVA500T33 PO; -LIDOCAINE 1%/EPINEPHrine 1:100,000 SOLN 20 ML VIAL ONE; -METOPROLOL TARTRATE 25 MG TAB PO PRN; -MIDAZOLAM HCL 2 MG/2 ML VIAL ONE; -MUPIROCIN 2% OINT 22 GM TUBE ONE; -POVIDONE IODINE 5% (ANTISEPSIS KIT) 4 APPLICATIONS EACH NARE PRN; -PROP20TA3 PO; -SODIUM CHLORID 0.9% 500 ML IV PRN
[2017-09-08 06:55] VITALS: BP 151/97; PULSE 49; RESP 18; TEMP 97.7; O2SAT 95
[2017-09-08] MEDS ORDERED: ceFAZolin 2 GM PREMIX 50 ML - implanted port/tunneled catheter insertion IV SCH (07:15)
[2017-09-08] MEDS ORDERED: VANCOMYCIN 1000 MG/NS 250 ML - implanted port/tunneled catheter IV SCH ×2 (07:15)
[2017-09-08] MEDS ORDERED: POVIDONE IODINE 5% (ANTISEPSIS KIT) 4 APPLICATIONS EACH NARE SCH (07:15)
[2017-09-08] MEDS ORDERED: SODIUM CHLORIDE 0.9% 1000 ML IV SCH (07:15)
[2017-09-08] MEDS ORDERED: CHLORHEXIDINE GLUCONATE 2 % 1 PACK (2 CLOTHS) TOPICAL SCH (07:15)
[2017-09-08 07:35] LABS: AUTOMATED NEUTROPHIL # 2.8 TH/MM3 (1.8-7.7); BASOPHIL % 0.6 % (0.0-2.0); EOSINOPHIL # 0.1 TH/MM3 (0-0.4); EOSINOPHIL % 2.9 % (0.0-4.0); HEMATOCRIT 43.4 % (39.0-51.0); HEMOGLOBIN 14.9 GM/DL (13.0-17.0); LYMPH % 18.3 % (9.0-44.0); LYMPHOCYTE # 0.8 TH/MM3 (1.0-4.8); MEAN CORPUSCULAR HGB CONC 34.4 % (32.0-36.0); MEAN PLATELET VOLUME 8.1 FL (7.0-11.0); MONO % 11.9 % (0.0-8.0); MONOCYTE # 0.5 TH/MM3 (0-0.9); NEUT % 66.3 % (16.0-70.0); PLATELET COUNT 67 TH/MM3 (150-450); RED BLOOD COUNT 4.82 MIL/MM3 (4.50-5.90); RED CELL DISTRIBUTION WIDTH 16.1 % (11.6-17.2); WHITE BLOOD COUNT 4.2 TH/MM3 (4.0-11.0)
[2017-09-08] MEDS ORDERED: LIDOCAINE 1%/EPINEPHrine 1:100,000 SOLN 30 ML VIAL ONE (07:42)
[2017-09-08] MEDS ORDERED: fentaNYL CITRATE 250 MCG/5 ML AMP ONE (07:44)
[2017-09-08] MEDS ORDERED: MIDAZOLAM HCL 5 MG/5 ML VIAL ONE (07:44)
[2017-09-08 07:49] LABS: INTERNATIONAL NORMALIZED RATIO 1.1 RATIO; PROTHROMBIN TIME - PATIENT 11.4 SEC (9.8-11.6)
[2017-09-08 08:50] VITALS: BP 157/87; PULSE 52; RESP 18; TEMP 97.5; O2SAT 93
[2017-09-08 09:05] VITALS: BP 136/78; PULSE 42; RESP 18; O2SAT 93
--- NOTE | 2017-09-08 09:24 | RADRPT ---
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 CLINICAL DATA: This is the patient's initial encounter. Patient reports that signs and symptoms have been present for 1 month and indicates a pain score of 0/10. MEDICAL/SURGICAL HISTORY: Cirrhosis. Arthritis. Gastroesophageal reflux disease. GI BleedVar icesGoutHigh CholesterolHTN . Tongue BxEsophageal varices banding COMPARISON: No prior [place] exams available for comparison. FLUORO TIME (min): .21 IMAGE SERIES: SEDATION TIME (min): 45 MEDICATION(S): 1.5mg midazolam (Versed) IV 75mcg fentanyl (Sublimaze) IV DEVICE(S): Right 8F infuse a port . . PROCEDURE : 1. Continuous pulse oximetry and EKG monitoring. 2. Intravenous conscious sedation. 3. Ultrasound guidance for venous access. 4. Fluoroscopic guided implantable central venous port placement. The patient was placed supine. The neck was prepped in sterile fashion. Full sterile technique was u sed, including cap, mask, sterile gloves and gown, and a large sterile sheet. Hand hygiene and 2% ch lorhexidine Betadine was utilized per protocol for cutaneous antisepsis with appropriate dry time for site. Sterile gel and sterile probe cover were utilized for ultrasound guidance. The skin and sub cutaneous tissues were infiltrated with local anesthetic solution. Under direct ultrasound guidance, central venous access was accomplished in the targeted vessel. The ultrasound images depicting access guidance were stored and saved to PACS for permanent record. A s ubcutaneous pocket was created using blunt dissection. The port was introduced to the pocket. The c atheter tubing was fed through a subcutaneous tunnel to the venotomy site. The catheter tubing was c ut to a suitable length and then was introduced through a valved Peel-Away sheath and positioned with catheter tubing tip at the cavo-atrial junction level. The pocket incision was closed with subcutic ular Vicryl suture. Steri-Strips were applied. The port was flushed and locked with heparin solutio n per protocol. Sterile dressing was applied to the site. The patient tolerated the procedure well. Conscious sedation was performed with the prescribed dosages and duration as above in the presence of an independent trained radiology nurse to assist in the monitoring of the patient. EKG and oximetry remained stable throughout the procedure. The patient tolerated the procedure well and there were no complications. The patient was sent to post anesthesia recovery in stable condition. CONCLUSION: 1. Uncomplicated ultrasound and fluoroscopic guided implanted central venous port catheter placement as described in detail above. An 8 [place] [employer] port was placed. Electronically signed by: Rios Samuel MD 09/08/2017 9:23 AM EDT
[2017-09-08 09:35] VITALS: BP 159/82; PULSE 43; RESP 18; O2SAT 95
[2017-09-08 10:05] VITALS: BP 158/83; PULSE 42; RESP 18; O2SAT 97
== END 2017-09-08 10:37 | disposition home or self-care (01) ==
LOC: HROP 06:12 → HRIP 06:15 → HROP 10:37
PROVIDERS: ATTEND Internal Medicine Hematology & Oncology
DX: C10.9 Malignant neoplasm of oropharynx, unspecified (principal); K74.60 Unspecified cirrhosis of liver; K21.9 Gastro-esophageal reflux disease without esophagitis; M19.90 Unspecified osteoarthritis, unspecified site
CPT/HCPCS: 36561; 76937; 77001; 85025; 85610; 85730; 99152; 99153; C1788; J0690; J1642; J2250; J3010; J3370; J7030; J7050